=== PATIENT | male | born 1945 | race Hispanic/Latino ===

== ENCOUNTER → 2017-12-03 | Outpatient (CLI) | payer OTHER, MEDICARE ==
[~2017-12-03] MED LIST: DEXA4TAB PO; DILT120T15 PO; LISI40TA4 PO; METO-391 PO; SERT50TA12 PO; SIMV40TA5 PO; TEST75GE TD; WARF2.5T47 PO
== END | disposition home or self-care (01) ==
LOC: RAH 15:18
PROVIDERS: ATTEND Internal Medicine
DX: I10 Essential (primary) hypertension (principal); I70.0 Atherosclerosis of aorta
CPT/HCPCS: 71046

== ENCOUNTER 2018-07-07 13:36 | Emergency (ER) | payer MEDICARE ==
[2018-07-07] MEDS ORDERED: PROMETHAZINE HCL 25 MG/ML 1ML AMPULE IM ONE (16:09)
[2018-07-07 16:36] LABS: RAPID GROUP A STREP NEGATIVE (NEGATIVE)
== END 2018-07-07 17:25 | disposition home or self-care (01) ==
LOC: EDH 13:36
DX: J02.8 Acute pharyngitis due to other specified organisms (principal); B97.89 Other viral agents as the cause of diseases classified elsewhere; R06.6 Hiccough; E78.5 Hyperlipidemia, unspecified; I10 Essential (primary) hypertension
CPT/HCPCS: 87804 ×2; 87880; 96372; 99284; J2550

== ENCOUNTER 2018-07-14 07:20 | Emergency (ER) | payer OTHER, MEDICARE | END 2018-07-14 10:47 | disposition home or self-care (01) | LOC: EDH 07:20 | DX: R06.6 Hiccough (principal); Z98.890 Other specified postprocedural states; Z90.49 Acquired absence of other specified parts of digestive tract ==

== ENCOUNTER → 2018-09-22 | Outpatient (CLI) | payer OTHER, MEDICARE | END | disposition home or self-care (01) | LOC: OIH 15:06 | PROVIDERS: ATTEND Internal Medicine | DX: I10 Essential (primary) hypertension (principal); I70.0 Atherosclerosis of aorta | CPT/HCPCS: 71046 ==

== ENCOUNTER 2019-05-10 13:35 | Observation (INO) | payer OTHER, MEDICARE ==
[~2019-05-10] VITALS: Ht 167.6 cm; Wt 86.4 kg
[2019-05-10] MEDS ORDERED: CEFTRIAXONE SODIUM 2 GM VIAL ONE (14:03)
[2019-05-10] MEDS ORDERED: SODIUM CHLORIDE 0.9% 1000ML 3,000 ML IV ONE (14:04)
[2019-05-10 14:10] LABS: BASOPHILS % (AUTO) 0.2 % (0.0-5.0); HEMATOCRIT 42.6 % (42-54); LYMPHOCYTES % (AUTO) 11.5 % (21.0-51.0); MEAN CORPUSCULAR HEMOGLOBIN 28.4 pg (27.0-33.0); MEAN CORPUSCULAR HGB CONC 33.5 g/dL (32.0-36.0); MEAN CORPUSCULAR VOLUME 84.7 fL (79-99); MONOCYTES % (AUTO) 5.4 % (3.0-13.0); NEUTROPHILS % (AUTO) 82.9 % (40.0-77.0); PLATELET COUNT (AUTO) 168 K/uL (130-400); RED BLOOD CELL COUNT(AUTO) 5.03 MIL/uL (4.50-6.20); RED CELL DISTRIBUTION WIDTH 16.2 % (11.0-15.5)
[2019-05-10 14:31] LABS: CARBON DIOXIDE 22 mmol/L (21-32); CHLORIDE 103 mmol/L (101-111); GLOMERULAR FILTR. RATE CALC 35 mL/min (>60); GLUCOSE,RANDOM 109 mg/dL (70-105); POTASSIUM 4.6 mmol/L (3.5-5.1); SODIUM SERUM 137 mmol/L (136-145); UREA NITROGEN, BLOOD 28 mg/dL (7-18)
[2019-05-10 14:34] LABS: INR 1.89 (0.85-1.15); PARTIAL THROMBOPLASTIN TIME 36.1 SEC (26.3-35.5); PROTHROMBIN TIME 19.6 SEC (9.6-11.6)
[2019-05-10 14:42] LABS: ALANINE AMINOTRANSFERASE 21 U/L (12-78); ALBUMIN 3.7 g/dL (3.5-5.0); ASPARTATE AMINOTRANSFERASE 21 U/L (10-37); BILIRUBIN,TOTAL 0.8 mg/dL (0.2-1.0); CREATINE KINASE, TOTAL 207 U/L (21-232); MYOGLOBIN 155 ng/mL (10-92); TROPONIN I < 0.04 ng/mL (0.00-0.06)
[2019-05-10 15:32] LABS: APPEARANCE,URINE Clear (CLEAR); BILIRUBIN,URINE Negative (NEGATIVE); COLOR,URINE Yellow (YELLOW); GLUCOSE, URINE (UA) Negative (NEGATIVE); KETONES,URINE Negative (NEGATIVE); LEUKOCYTE ESTERASE ,URINE Negative (NEGATIVE); NITRATE,URINE Negative (NEGATIVE); OCCULT BLOOD,URINE Negative (NEGATIVE); PH,URINE 5.5 (5.0-8.0); PROTEIN,URINE Negative (NEGATIVE)
[2019-05-10 16:06] VITALS: BP 128/60
[2019-05-10] MEDS ORDERED: DONE10TA43 PO (18:29)
[2019-05-10] MEDS ORDERED: WARF5TAB76 PO (18:29)
[2019-05-10] MEDS ORDERED: PREG100C PO (18:29)
[2019-05-10] MEDS ORDERED: TIZA4CAP8 PO (18:29)
[2019-05-10] MEDS ORDERED: HYDR-4453 PO (18:30)
[2019-05-10] MEDS: ACETAMINOPHEN 325 MG TAB PO PRN (18:44)
[2019-05-10 20:00] VITALS: BP 120/61
[2019-05-10] MEDS ORDERED: SODIUM CHLORIDE 0.9% 250 ML IV ONE (20:40)
[2019-05-10] MEDS: METOPROLOL TARTRATE 50 MG TAB PO SCH (20:43)
[2019-05-10] MEDS: SIMVASTATIN 10 MG TABLET PO SCH (20:43)
[2019-05-10] MEDS: AZITHROMYCIN 500MG+NS 250ML 250 ML IV SCH (20:43)
[2019-05-10] MEDS ORDERED: TIZANIDINE HCL 2 MG TABLET PO PRN (21:00)
[2019-05-10] MEDS: PREGABALIN 100 MG CAPSULE PO SCH (21:10)
[2019-05-10] MEDS: IPRATROPIUM/ALBUTEROL SULFATE 3 ML SOLUTION IH SCH (21:10)
[2019-05-11] VITALS (7 sets, daily range): BP systolic 95–135; BP diastolic 48–64
[2019-05-11] MEDS: IPRATROPIUM/ALBUTEROL SULFATE 3 ML SOLUTION IH SCH ×5 (00:52→21:57)
[2019-05-11 05:49] LABS: HEMATOCRIT 39.2 % (42-54); MEAN CORPUSCULAR HEMOGLOBIN 29.4 pg (27.0-33.0); MEAN CORPUSCULAR HGB CONC 33.8 g/dL (32.0-36.0); MEAN CORPUSCULAR VOLUME 86.9 fL (79-99); PLATELET COUNT (AUTO) 126 K/uL (130-400); RED BLOOD CELL COUNT(AUTO) 4.51 MIL/uL (4.50-6.20); RED CELL DISTRIBUTION WIDTH 16.2 % (11.0-15.5); WHITE BLOOD COUNT (AUTO) 10.6 K/uL (4.8-10.8)
[2019-05-11 06:12] LABS: ALBUMIN 2.9 g/dL (3.5-5.0); BILIRUBIN,TOTAL 0.7 mg/dL (0.2-1.0); CREATININE 1.3 mg/dL (0.5-1.5); POTASSIUM 4.7 mmol/L (3.5-5.1); TOTAL PROTEIN, SERUM 6.3 g/dL (6.0-8.3)
[2019-05-11] MEDS: PREGABALIN 100 MG CAPSULE PO SCH ×2 (10:32→20:56)
[2019-05-11] MEDS: DONEPEZIL HCL 5 MG TAB PO SCH (10:32)
[2019-05-11] MEDS: DILTIAZEM HCL 120 MG CAP.SR.24H PO SCH (10:32)
[2019-05-11] MEDS: LISINOPRIL 40 MG TABLET PO SCH (10:33)
[2019-05-11] MEDS: CEFTRIAXONE SODIUM 1 GM IVP SCH (10:35)
[2019-05-11] MEDS: METOPROLOL TARTRATE 50 MG TAB PO SCH ×2 (10:37→20:57)
[2019-05-11] MEDS: WARFARIN SODIUM 2.5 MG TAB PO SCH (10:37)
[2019-05-11] MEDS: ENOXAPARIN SODIUM 40 MG/0.4 ML SYRINGE SQ SCH (10:38)
--- NOTE | 2019-05-11 13:11 | NUR ---
DCP CM met with pt discussed dc plans. Pt is independent prior to admission, lives at home with spouse. Denies any equipments/services. Pt feels safe to go back home, spouse able to assist with transportation and needs. DC plan to home once stable. CM to cont to follow up. Addendum: 05/11/19 at 1313 by LORI STEVENS LVN CM Amended: Links added.
[2019-05-11] MEDS ORDERED: WARFARIN SODIUM 5 MG TAB PO SCH (17:00)
[2019-05-11] MEDS: AZITHROMYCIN 500MG+NS 250ML 250 ML IV SCH (18:39)
[2019-05-11] MEDS: ACETAMINOPHEN 325 MG TAB PO PRN (20:56)
[2019-05-11] MEDS: SIMVASTATIN 10 MG TABLET PO SCH (20:57)
[2019-05-12] MEDS: IPRATROPIUM/ALBUTEROL SULFATE 3 ML SOLUTION IH SCH ×4 (01:29→14:05)
[2019-05-12 04:00] VITALS: BP 144/70
[2019-05-12 04:52] LABS: HEMATOCRIT 39.6 % (42-54); MEAN CORPUSCULAR HGB CONC 33.6 g/dL (32.0-36.0); MEAN CORPUSCULAR VOLUME 86.4 fL (79-99); PLATELET COUNT (AUTO) 153 K/uL (130-400); RED BLOOD CELL COUNT(AUTO) 4.58 MIL/uL (4.50-6.20); RED CELL DISTRIBUTION WIDTH 16.3 % (11.0-15.5); WHITE BLOOD COUNT (AUTO) 6.8 K/uL (4.8-10.8)
[2019-05-12 04:57] LABS: CREATININE 1.3 mg/dL (0.5-1.5); POTASSIUM 4.2 mmol/L (3.5-5.1)
[2019-05-12 08:00] VITALS: BP 150/75
[2019-05-12] MEDS: ENOXAPARIN SODIUM 40 MG/0.4 ML SYRINGE SQ SCH (09:00)
[2019-05-12] MEDS: DONEPEZIL HCL 5 MG TAB PO SCH (10:57)
[2019-05-12] MEDS: DILTIAZEM HCL 120 MG CAP.SR.24H PO SCH (10:57)
[2019-05-12] MEDS: PREGABALIN 100 MG CAPSULE PO SCH (10:58)
[2019-05-12] MEDS: LISINOPRIL 40 MG TABLET PO SCH (10:58)
[2019-05-12] MEDS: CEFTRIAXONE SODIUM 1 GM IVP SCH (10:59)
[2019-05-12] MEDS: WARFARIN SODIUM 2.5 MG TAB PO SCH (10:59)
[2019-05-12] MEDS: METOPROLOL TARTRATE 50 MG TAB PO SCH (10:59)
[2019-05-12 11:00] VITALS: BP 152/61
--- NOTE | 2019-05-12 12:45 | NUR ---
discharge instructions given and explained utilizing teach back method. instructed to follow up with Dr. villa for INR lab work. pt verbalized understanding.
--- NOTE | 2019-05-12 14:05 | NUR ---
Diet Education RD provided Vitamin K Foods and Warfarin Food and Drug Interaction, Diet education. Pt verbalized previously familiar with dietary and medication recommendations. TAE reviewed reference materials and handouts with Pt. Handouts and materials provided in [place]. Pt verbalized understanding. TAE encouraged Pt to notify as questions or concerns arise. Addendum: 05/12/19 at [address] RD Amended: Links added.
[2019-05-13] MEDS ORDERED: WARFARIN SODIUM 5 MG TAB PO SCH (17:00)
== END 2019-05-12 14:30 | disposition home or self-care (01) ==
LOC: EDH 13:35 → EDHIP 15:13 → 3AH 15:52
PROVIDERS: ADMIT Internal Medicine; ATTEND Internal Medicine
DX: J18.9 Pneumonia, unspecified organism (principal); I25.10 Atherosclerotic heart disease of native coronary artery without angina pectoris; I48.91 Unspecified atrial fibrillation; J40 Bronchitis, not specified as acute or chronic; M19.90 Unspecified osteoarthritis, unspecified site; I10 Essential (primary) hypertension; E78.5 Hyperlipidemia, unspecified; G89.29 Other chronic pain; M54.5 Low back pain; Z79.899 Other long term (current) drug therapy
CPT/HCPCS: 36415 ×3; 70450; 71045; 80048; 80053 ×2; 81003; 82550; 83605; 83874; 84484; 85025; 85027 ×2; 85610; 85730; 87040 ×2; 87088; 87804 ×2; 93005; 94640 ×11; 94664; 96365; 96366; 96372; 96375; 96376; 99284; G0378 ×47; J0456 ×2; J0696 ×3; J1650; J7030 ×2

== ENCOUNTER → 2019-09-14 | Outpatient (CLI) | payer OTHER, MEDICARE ==
[~2019-09-14] MED LIST changes: -DEXA4TAB PO; +DONE10TA43 PO; +HYDR-4453 PO; +PREG100C PO; -SERT50TA12 PO; +SIMV-46 PO; -SIMV40TA5 PO; -TEST75GE TD; +TIZA4CAP8 PO; +WARF5TAB76 PO
== END | disposition home or self-care (01) ==
LOC: OIH 13:50
PROVIDERS: ATTEND Internal Medicine
DX: I10 Essential (primary) hypertension (principal)
CPT/HCPCS: 71046

== ENCOUNTER → 2019-11-16 | Outpatient (CLI) | payer OTHER, MEDICARE | END | disposition home or self-care (01) | LOC: OIH 14:50 | PROVIDERS: ATTEND Internal Medicine | DX: M41.85 Other forms of scoliosis, thoracolumbar region (principal) | CPT/HCPCS: 72082 ==

== ENCOUNTER 2019-11-26 15:59 | Emergency (ER) | payer OTHER, MEDICARE ==
[2019-11-26 17:14] LABS: BASOPHILS % (AUTO) 0.8 % (0.0-5.0); EOSINOPHILS % (AUTO) 2.7 % (0.0-8.0); HEMATOCRIT 39.2 % (42-54); LYMPHOCYTES % (AUTO) 34.8 % (21.0-51.0); MEAN CORPUSCULAR HEMOGLOBIN 29.9 pg (27.0-33.0); MEAN CORPUSCULAR HGB CONC 34.7 g/dL (32.0-36.0); MEAN CORPUSCULAR VOLUME 86.2 fL (79-99); MONOCYTES % (AUTO) 10.4 % (3.0-13.0); NEUTROPHILS % (AUTO) 51.1 % (40.0-77.0); PLATELET COUNT (AUTO) 193 K/uL (130-400); RED BLOOD CELL COUNT(AUTO) 4.55 MIL/uL (4.50-6.20); RED CELL DISTRIBUTION WIDTH 13.9 % (11.0-15.5); WHITE BLOOD COUNT (AUTO) 6.2 K/uL (4.8-10.8)
[2019-11-26 17:29] LABS: CREATININE 1.3 mg/dL (0.5-1.5)
[2019-11-26 17:34] LABS: ALBUMIN 3.6 g/dL (3.5-5.0); BILIRUBIN,TOTAL 0.3 mg/dL (0.2-1.0); INR 1.54 (0.85-1.15); PARTIAL THROMBOPLASTIN TIME 33.1 SEC (26.3-35.5); PROTHROMBIN TIME 16.4 SEC (9.6-11.6); TOTAL PROTEIN, SERUM 7.2 g/dL (6.0-8.3)
[2019-11-26 18:08] LABS: B-TYPE NATRIURETIC PEPTIDE 36 pg/mL (0-100)
== END 2019-11-26 20:54 | disposition home or self-care (01) ==
LOC: EDH 15:59
DX: R06.00 Dyspnea, unspecified (principal); I25.10 Atherosclerotic heart disease of native coronary artery without angina pectoris; E78.5 Hyperlipidemia, unspecified; I10 Essential (primary) hypertension; Z90.49 Acquired absence of other specified parts of digestive tract
CPT/HCPCS: 36415; 71045; 80053; 82550; 83880; 84484; 85025; 85610; 85730; 87804; 93005

== ENCOUNTER → 2020-09-12 | Outpatient (CLI) | payer OTHER, MEDICARE ==
[~2020-09-12] MED LIST changes: +WARF2.5T PO; -WARF2.5T47 PO; +WARF5TAB PO; -WARF5TAB76 PO
== END | disposition home or self-care (01) ==
LOC: OIH 13:41
PROVIDERS: ATTEND Internal Medicine
DX: I10 Essential (primary) hypertension (principal)
CPT/HCPCS: 71046

== ENCOUNTER 2020-09-22 04:10 | Inpatient (IN) | payer OTHER, MEDICARE ==
[~2020-09-22] VITALS: Ht 175.3 cm; Wt 81.6 kg
[~2020-09-22 04:10] MED LIST changes: -LISI40TA4 PO; +LISI40TA9 PO
[2020-09-22 04:59] LABS: BASOPHILS % (AUTO) 0.2 % (0.0-5.0); EOSINOPHILS % (AUTO) 1.6 % (0.0-8.0); HEMATOCRIT 35.7 % (42-54); LYMPHOCYTES % (AUTO) 7.3 % (21.0-51.0); MEAN CORPUSCULAR HEMOGLOBIN 29.1 pg (27.0-33.0); MEAN CORPUSCULAR HGB CONC 34.5 g/dL (32.0-36.0); MEAN CORPUSCULAR VOLUME 84.4 fL (79-99); MONOCYTES % (AUTO) 1.4 % (3.0-13.0); NEUTROPHILS % (AUTO) 88.8 % (40.0-77.0); PLATELET COUNT (AUTO) 300 K/uL (130-400); RED BLOOD CELL COUNT(AUTO) 4.23 MIL/uL (4.50-6.20); RED CELL DISTRIBUTION WIDTH 14.6 % (11.0-15.5); WHITE BLOOD COUNT (AUTO) 12.3 K/uL (4.8-10.8)
[2020-09-22 05:11] LABS: CREATININE 2.9 mg/dL (0.5-1.5); POTASSIUM 4.1 mmol/L (3.5-5.1)
[2020-09-22 05:12] LABS: PARTIAL THROMBOPLASTIN TIME 62.8 SEC (26.3-35.5)
[2020-09-22 05:18] LABS: APPEARANCE,URINE Clear (CLEAR); BILIRUBIN,URINE Negative (NEGATIVE); COLOR,URINE Yellow (YELLOW); GLUCOSE, URINE (UA) TRACE mg/dL (NEGATIVE); KETONES,URINE Negative (NEGATIVE); LEUKOCYTE ESTERASE ,URINE Negative (NEGATIVE); NITRATE,URINE Negative (NEGATIVE); OCCULT BLOOD,URINE Negative (NEGATIVE); PH,URINE 5.5 (5.0-8.0); PROTEIN,URINE Trace mg/dL (NEGATIVE)
[2020-09-22 05:18] LABS: ALBUMIN 2.4 g/dL (3.5-5.0); BILIRUBIN,TOTAL 0.5 mg/dL (0.2-1.0); TOTAL PROTEIN, SERUM 6.7 g/dL (6.0-8.3)
[2020-09-22] MEDS ORDERED: ONDANSETRON 4MG INJ ONE (05:19)
[2020-09-22] MEDS ORDERED: MORPHINE 2 MG SYG ONE ×3 (05:20→14:10)
[2020-09-22 05:31] LABS: BACTERIA,URINE Few /HPF (None Seen); RBC,URINE 0-1 /HPF (0-1); SQUAMOUS EPITHELIAL CELL,UR 0-2 /HPF (0-2); WBC,URINE 0-1 /HPF (0-1)
[2020-09-22 06:14] LABS: INR > 7.00 (0.85-1.15); PROTHROMBIN TIME > 63.0 SEC (9.6-11.6)
[2020-09-22] MEDS ORDERED: ZOSYN 3.375GM+NS 50ML 50 ML IV ONE ×3 (06:30→22:56)
[2020-09-22 07:05] LABS: PARTIAL THROMBOPLASTIN TIME 68.6 SEC (26.3-35.5)
[2020-09-22 07:49] LABS: INR > 7.00 (0.85-1.15)
[2020-09-22 07:51] LABS: PROTHROMBIN TIME > 63.0 SEC (9.6-11.6)
[2020-09-22] MEDS ORDERED: PHYTONADIONE 10 MG/1 ML AMP ONE (08:14)
[2020-09-22] MEDS ORDERED: METRONIDAZOLE 500MG/100ML BAG 100 ML ONE ×2 (08:23→18:32)
[2020-09-22] MEDS ORDERED: 1/2 NS 1000ML 1,000 ML IV ONE (22:48)
[2020-09-23] VITALS (10 sets, daily range): BP systolic 136–187; BP diastolic 76–104
[2020-09-23] MEDS ORDERED: MORPHINE 2 MG SYG ONE (03:41)
[2020-09-23] MEDS ORDERED: METRONIDAZOLE 500MG/100ML BAG 100 ML ONE (03:47)
[2020-09-23] MEDS ORDERED: METOPROLOL TARTRATE 1 MG/ML 5ML VIAL IV SCH (07:15)
[2020-09-23] MEDS: 1/2 NS 1000ML 1,000 ML IV SCH ×3 (07:15→20:46)
[2020-09-23] MEDS ORDERED: HYDROMORPHONE 0.5 MG SYG (0.5MG/0.5ML) ONE (11:01)
[2020-09-23] MEDS ORDERED: ONDANSETRON 4MG INJ ONE (11:01)
[2020-09-23] MEDS ORDERED: METOPROLOL TARTRATE 1 MG/ML 5ML VIAL IV ONE (11:53)
[2020-09-23 12:00] LABS: INR 1.51 (0.85-1.15); PROTHROMBIN TIME 15.6 SEC (9.6-11.6)
[2020-09-23 12:01] LABS: PARTIAL THROMBOPLASTIN TIME 36.9 SEC (26.3-35.5)
[2020-09-23 14:05] LABS: BASOPHILS % (AUTO) 0.4 % (0.0-5.0); EOSINOPHILS % (AUTO) 0.2 % (0.0-8.0); HEMATOCRIT 35.4 % (42-54); MEAN CORPUSCULAR HEMOGLOBIN 29.2 pg (27.0-33.0); MEAN CORPUSCULAR VOLUME 83.3 fL (79-99); MONOCYTES % (AUTO) 2.1 % (3.0-13.0); NEUTROPHILS % (AUTO) 90.9 % (40.0-77.0); PLATELET COUNT (AUTO) 295 K/uL (130-400); RED BLOOD CELL COUNT(AUTO) 4.25 MIL/uL (4.50-6.20); RED CELL DISTRIBUTION WIDTH 14.9 % (11.0-15.5); WHITE BLOOD COUNT (AUTO) 19.8 K/uL (4.8-10.8)
[2020-09-23] MEDS: HYDROMORPHONE 0.5 MG SYG (0.5MG/0.5ML) IVP PRN ×3 (14:18→22:11)
[2020-09-23] MEDS ORDERED: NICARDIPINE 25MG INJ 50 MG in 0.9% NACL 250ML 230 ML IV SCH (15:45)
[2020-09-23 16:36] LABS: ALBUMIN 1.8 g/dL (3.5-5.0); BILIRUBIN,TOTAL 0.8 mg/dL (0.2-1.0); CREATININE 1.9 mg/dL (0.5-1.5); POTASSIUM 4.1 mmol/L (3.5-5.1); TOTAL PROTEIN, SERUM 5.9 g/dL (6.0-8.3)
[2020-09-23] MEDS ORDERED: LOSA100T58 PO (16:43)
[2020-09-23] MEDS ORDERED: TEST200V21 IM (16:43)
[2020-09-23] MEDS ORDERED: ALLO100T PO (16:43)
[2020-09-23] MEDS ORDERED: PRED20TA3 PO (16:43)
[2020-09-23] MEDS ORDERED: TAMS-1 PO (16:43)
[2020-09-23] MEDS: METRONIDAZOLE 500MG/100ML BAG 100 ML IVPB SCH (16:49)
[2020-09-23] MEDS ORDERED: ONDANSETRON 4MG INJ IVP PRN (19:30)
[2020-09-23] MEDS ORDERED: ACETAMINOPHEN 650 MG SUPPOSITORY RC PRN (19:30)
[2020-09-23] MEDS: FAMOTIDINE 20MG VIAL IV SCH (20:44)
[2020-09-24] VITALS (23 sets, daily range): BP systolic 141–189; BP diastolic 75–113
[2020-09-24] MEDS: METRONIDAZOLE 500MG/100ML BAG 100 ML IVPB SCH ×3 (00:01→15:38)
[2020-09-24] MEDS: ZOSYN 3.375GM+NS 50ML 50 ML IV SCH ×2 (01:05→12:38)
[2020-09-24] MEDS: HYDROMORPHONE 0.5 MG SYG (0.5MG/0.5ML) IVP PRN ×7 (01:12→20:49)
[2020-09-24 03:55] LABS: BASOPHILS % (AUTO) 0.2 % (0.0-5.0); EOSINOPHILS % (AUTO) 0.3 % (0.0-8.0); HEMATOCRIT 33.6 % (42-54); LYMPHOCYTES % (AUTO) 3.8 % (21.0-51.0); MEAN CORPUSCULAR HEMOGLOBIN 28.6 pg (27.0-33.0); MEAN CORPUSCULAR HGB CONC 34.8 g/dL (32.0-36.0); MEAN CORPUSCULAR VOLUME 82.2 fL (79-99); MONOCYTES % (AUTO) 2.7 % (3.0-13.0); PLATELET COUNT (AUTO) 303 K/uL (130-400); RED BLOOD CELL COUNT(AUTO) 4.09 MIL/uL (4.50-6.20); RED CELL DISTRIBUTION WIDTH 14.8 % (11.0-15.5); WHITE BLOOD COUNT (AUTO) 20.7 K/uL (4.8-10.8)
[2020-09-24 04:04] LABS: CREATININE 1.8 mg/dL (0.5-1.5)
[2020-09-24 04:20] LABS: INR 1.63 (0.85-1.15); PROTHROMBIN TIME 16.7 SEC (9.6-11.6)
[2020-09-24] MEDS: 1/2 NS 1000ML 1,000 ML IV SCH (06:11)
[2020-09-24] MEDS: FLUCONAZOLE 400 MG/NS 200 ML 200 ML IV SCH (08:33)
[2020-09-24] MEDS: METOCLOPRAMIDE 10 MG/2 ML VIAL IVP SCH ×2 (12:38→17:28)
[2020-09-24] MEDS ORDERED: GLUCAGON 1MG KIT 1 MG ML IM PRN (18:45)
[2020-09-24] MEDS ORDERED: DEXTROSE 50%-WATER 50 ML DISP.SYRIN IV PRN (18:45)
[2020-09-24] MEDS: 0.9% NACL 500ML IV.SOLN 500 ML IV SCH ×4 (18:45→20:18)
[2020-09-24] MEDS: DEXTROSE 5%-LACTATED RINGERS 1,000 ML IV SCH (20:28)
[2020-09-24] MEDS: FAT EMULSIONS 20% 250ML 250 ML IV SCH (20:29)
[2020-09-24] MEDS: FAMOTIDINE 20MG VIAL IV SCH (20:29)
[2020-09-24] MEDS: METOPROLOL TARTRATE 1 MG/ML 5ML VIAL IV SCH (20:33)
[2020-09-24] MEDS: INSULIN HUMULIN R 100 UNIT/ML 3ML SQ SCH (21:00)
[2020-09-25] VITALS (14 sets, daily range): BP systolic 100–191; BP diastolic 60–106
[2020-09-25] MEDS: HYDROMORPHONE 0.5 MG SYG (0.5MG/0.5ML) IVP PRN (00:33)
[2020-09-25] MEDS: METOPROLOL TARTRATE 1 MG/ML 5ML VIAL IV SCH ×5 (00:45→23:47)
[2020-09-25] MEDS: METRONIDAZOLE 500MG/100ML BAG 100 ML IVPB SCH ×4 (00:48→23:32)
[2020-09-25] MEDS: ZOSYN 3.375GM+NS 50ML 50 ML IV SCH ×2 (00:49→12:30)
[2020-09-25] MEDS: METOCLOPRAMIDE 10 MG/2 ML VIAL IVP SCH ×3 (00:49→12:31)
[2020-09-25] MEDS: HYDROMORPHONE 2 MG VIAL (2MG/ML) IVP PRN ×4 (03:30→14:59)
[2020-09-25] MEDS: INSULIN HUMULIN R 100 UNIT/ML 3ML SQ SCH ×4 (03:43→23:46)
[2020-09-25 03:46] LABS: HEMATOCRIT 31.1 % (42-54); MEAN CORPUSCULAR HEMOGLOBIN 29.1 pg (27.0-33.0); MEAN CORPUSCULAR HGB CONC 35.7 g/dL (32.0-36.0); MEAN CORPUSCULAR VOLUME 81.6 fL (79-99); RED BLOOD CELL COUNT(AUTO) 3.81 MIL/uL (4.50-6.20); RED CELL DISTRIBUTION WIDTH 14.7 % (11.0-15.5); WHITE BLOOD COUNT (AUTO) 24.9 K/uL (4.8-10.8)
[2020-09-25 03:58] LABS: CREATININE 1.5 mg/dL (0.5-1.5); MAGNESIUM 1.6 mg/dL (1.80-2.40); PHOSPHORUS 2.7 mg/dL (2.5-4.9); POTASSIUM 3.6 mmol/L (3.5-5.1)
[2020-09-25] MEDS ORDERED: LIDOCAINE HCL-MPF 1% 2ML VIAL IV PRN (07:45)
[2020-09-25] MEDS ORDERED: MAGNESIUM 2GM PREMIX 50ML 50 ML IV SCH (07:45)
[2020-09-25] MEDS: FLUCONAZOLE 400 MG/NS 200 ML 200 ML IV SCH (08:34)
[2020-09-25] MEDS ORDERED: M.V.I. IV [ADULT] 10 ML in CLINIMIX-E4.25%AA/D5+LYT2000ML 2,000 ML IV SCH (09:00)
[2020-09-25] MEDS: FAT EMULSIONS 20% 250ML 250 ML IV SCH (12:28)
[2020-09-25] MEDS: DEXTROSE 5%-LACTATED RINGERS 1,000 ML IV SCH (14:41)
[2020-09-25] MEDS: POTASSIUM CHLORIDE 20MEQ/100ML 100 ML IV PRN (14:43)
[2020-09-25] MEDS ORDERED: 0.9%NACL 1000ML 1,000 ML IV ONE (19:06)
[2020-09-25] MEDS ORDERED: LIDOCAINE PF 100MG/5ML (2%) SYRINGE 5ML ONE (19:23)
[2020-09-25] MEDS ORDERED: DEXAMETHASONE SOD PHOSPHATE 10MG/ML 1ML VIAL ONE (19:23)
[2020-09-25] MEDS ORDERED: ROCURONIUM 10MG/1ML SYR 10 MG/ML ML ONE ×2 (19:24→21:02)
[2020-09-25] MEDS ORDERED: MIDAZOLAM HCL 1 MG/ML 2ML VIAL ONE (19:24)
[2020-09-25] MEDS ORDERED: ONDANSETRON 4MG INJ ONE (19:24)
[2020-09-25] MEDS ORDERED: PROPOFOL 10 MG/ML 20ML VIAL IV ONE (19:24)
[2020-09-25] MEDS ORDERED: FENTANYL CITRATE PF 50 MCG/1 ML 2ML VIAL ONE (19:24)
[2020-09-25] MEDS ORDERED: M.V.I. IV [ADULT] 10 ML in CLINIMIX-E4.25%AA/D5+LYT2000ML 2,000 ML IV ONE (21:00)
[2020-09-25] MEDS ORDERED: PROPOFOL 1000 MG/100 ML 100 ML IV ONE (21:27)
[2020-09-25] MEDS: FAMOTIDINE 20MG VIAL IV SCH (21:47)
[2020-09-25 21:55] LABS: HEMATOCRIT 35.2 % (42-54); MEAN CORPUSCULAR HEMOGLOBIN 29.3 pg (27.0-33.0); MEAN CORPUSCULAR HGB CONC 34.7 g/dL (32.0-36.0); MEAN CORPUSCULAR VOLUME 84.4 fL (79-99); NUCLEATED RED BLOOD CELLS 0.1 % (0.0-0.19); RED BLOOD CELL COUNT(AUTO) 4.17 MIL/uL (4.50-6.20); RED CELL DISTRIBUTION WIDTH 15.3 % (11.0-15.5); WHITE BLOOD COUNT (AUTO) 26.8 K/uL (4.8-10.8)
[2020-09-25 22:09] LABS: CREATININE 1.4 mg/dL (0.5-1.5); POTASSIUM 4.3 mmol/L (3.5-5.1)
[2020-09-25] MEDS ORDERED: MIDAZOLAM 100MG-0.9% NS 100ML 100ML BAG IV ONE (22:15)
[2020-09-25] MEDS ORDERED: PROPOFOL 1000 MG/100 ML IV PRN (22:15)
[2020-09-25] MEDS ORDERED: FENTANYL CITRATE PF 0.05 MG/ML 1,000 MCG in 0.9%NACL 100ML 100 ML IVPB SCH (22:15)
[2020-09-25] MEDS ORDERED: MIDAZOLAM 100MG-0.9% NS 100ML 100 ML IV SCH (23:30)
[2020-09-26] VITALS (42 sets, daily range): BP systolic 86–171; BP diastolic 50–96
[2020-09-26] MEDS: ZOSYN 3.375GM+NS 50ML 50 ML IV SCH ×2 (00:23→14:22)
[2020-09-26] MEDS: PROPOFOL 1000 MG/100 ML 100 ML IV SCH ×3 (02:38→13:26)
[2020-09-26 03:50] LABS: BASOPHILS % (AUTO) 0.2 % (0.0-5.0); EOSINOPHILS % (AUTO) 0.1 % (0.0-8.0); HEMATOCRIT 31.1 % (42-54); LYMPHOCYTES % (AUTO) 2.5 % (21.0-51.0); MEAN CORPUSCULAR HEMOGLOBIN 28.5 pg (27.0-33.0); MEAN CORPUSCULAR HGB CONC 34.4 g/dL (32.0-36.0); MEAN CORPUSCULAR VOLUME 82.9 fL (79-99); MONOCYTES % (AUTO) 3.3 % (3.0-13.0); NEUTROPHILS % (AUTO) 92.9 % (40.0-77.0); PLATELET COUNT (AUTO) 233 K/uL (130-400); RED BLOOD CELL COUNT(AUTO) 3.75 MIL/uL (4.50-6.20); RED CELL DISTRIBUTION WIDTH 14.9 % (11.0-15.5); WHITE BLOOD COUNT (AUTO) 25.7 K/uL (4.8-10.8)
[2020-09-26 04:04] LABS: INR 1.94 (0.85-1.15); PROTHROMBIN TIME 19.5 SEC (9.6-11.6)
[2020-09-26 04:06] LABS: PARTIAL THROMBOPLASTIN TIME 35.4 SEC (26.3-35.5)
[2020-09-26 04:08] LABS: ALBUMIN 1.4 g/dL (3.5-5.0); BILIRUBIN,TOTAL 1.1 mg/dL (0.2-1.0); CREATININE 1.3 mg/dL (0.5-1.5); MAGNESIUM 1.7 mg/dL (1.80-2.40); PHOSPHORUS 2.8 mg/dL (2.5-4.9); POTASSIUM 4.3 mmol/L (3.5-5.1); TOTAL PROTEIN, SERUM 4.9 g/dL (6.0-8.3)
[2020-09-26 04:30] LABS: ABG BASE EXCESS 1.3 mmol/L (-2.0-3.0); ABG HCO3 23.4 mmol/L (21.0-28.0); ABG OXYGEN SATURATION 98.6 % (95.0-99.0); ABG PCO2 30 mmHg (35-48)
[2020-09-26] MEDS: DEXTROSE 5%-LACTATED RINGERS 1,000 ML IV SCH ×2 (05:23→05:24)
[2020-09-26] MEDS: METOPROLOL TARTRATE 1 MG/ML 5ML VIAL IV SCH ×3 (06:24→17:27)
[2020-09-26] MEDS: INSULIN HUMULIN R 100 UNIT/ML 3ML SQ SCH ×4 (06:26→21:00)
[2020-09-26] MEDS: METRONIDAZOLE 500MG/100ML BAG 100 ML IVPB SCH ×2 (07:48→16:20)
[2020-09-26] MEDS: PANTOPRAZOLE 40 MG/VIAL IVP SCH (08:45)
[2020-09-26] MEDS: FLUCONAZOLE 400 MG/NS 200 ML 200 ML IV SCH (08:45)
[2020-09-26] MEDS: HYDROMORPHONE 0.5 MG SYG (0.5MG/0.5ML) IVP PRN ×2 (13:44→16:20)
[2020-09-26] MEDS ORDERED: CLINIMIX-E4.25%AA/D5+LYT2000ML 2,000 ML IV ONE (14:00)
[2020-09-26] MEDS: FAT EMULSIONS 20% 250ML 250 ML IV SCH (14:22)
[2020-09-26 15:11] LABS: INR 2.33 (0.85-1.15); PROTHROMBIN TIME 23.1 SEC (9.6-11.6)
[2020-09-26 16:15] LABS: ABG BASE EXCESS -1.7 mmol/L (-2.0-3.0); ABG HCO3 20.4 mmol/L (21.0-28.0); ABG OXYGEN SATURATION 97.7 % (95.0-99.0); ABG PCO2 28 mmHg (35-48)
[2020-09-26] MEDS: HYDROMORPHONE 2 MG VIAL (2MG/ML) IVP PRN ×2 (17:53→22:08)
[2020-09-27] VITALS (29 sets, daily range): BP systolic 141–176; BP diastolic 72–97
[2020-09-27] MEDS: HYDROMORPHONE 2 MG VIAL (2MG/ML) IVP PRN ×5 (01:55→20:45)
[2020-09-27] MEDS: METRONIDAZOLE 500MG/100ML BAG 100 ML IVPB SCH ×3 (02:00→15:51)
[2020-09-27] MEDS: ZOSYN 3.375GM+NS 50ML 50 ML IV SCH ×2 (02:00→12:24)
[2020-09-27] MEDS: METOPROLOL TARTRATE 1 MG/ML 5ML VIAL IV SCH ×4 (02:01→17:58)
[2020-09-27 04:21] LABS: BASOPHILS % (AUTO) 0.2 % (0.0-5.0); EOSINOPHILS % (AUTO) 0.4 % (0.0-8.0); HEMATOCRIT 28.4 % (42-54); LYMPHOCYTES % (AUTO) 4.3 % (21.0-51.0); MEAN CORPUSCULAR HEMOGLOBIN 28.8 pg (27.0-33.0); MEAN CORPUSCULAR HGB CONC 33.5 g/dL (32.0-36.0); MEAN CORPUSCULAR VOLUME 86.1 fL (79-99); MONOCYTES % (AUTO) 5.2 % (3.0-13.0); NEUTROPHILS % (AUTO) 87.5 % (40.0-77.0); PLATELET COUNT (AUTO) 251 K/uL (130-400); RED CELL DISTRIBUTION WIDTH 15.6 % (11.0-15.5); WHITE BLOOD COUNT (AUTO) 23.1 K/uL (4.8-10.8)
[2020-09-27 04:30] LABS: CREATININE 1.3 mg/dL (0.5-1.5); POTASSIUM 5.9 mmol/L (3.5-5.1)
[2020-09-27] MEDS: DEXTROSE 5%-LACTATED RINGERS 1,000 ML IV SCH (06:45)
[2020-09-27] MEDS: INSULIN HUMULIN R 100 UNIT/ML 3ML SQ SCH ×3 (07:30→17:59)
[2020-09-27] MEDS: PANTOPRAZOLE 40 MG/VIAL IVP SCH (08:02)
[2020-09-27] MEDS: FLUCONAZOLE 400 MG/NS 200 ML 200 ML IV SCH (08:02)
[2020-09-27] MEDS: FAT EMULSIONS 20% 250ML 250 ML IV SCH (10:00)
[2020-09-27] MEDS ORDERED: HYDROMORPHONE 0.5 MG SYG (0.5MG/0.5ML) IVP PRN (13:00)
[2020-09-27] MEDS ORDERED: FENTANYL 2500MCG+NS 250ML 250 ML IV SCH (13:00)
[2020-09-27] MEDS ORDERED: DEXTROSE 10%-WATER 1,000 ML IV ONE (14:45)
[2020-09-27] MEDS: PROCALAMINE IV SOLUTION 1,000 ML IV SCH (17:17)
[2020-09-27] MEDS ORDERED: HYDROMORPHONE 1 MG INJ ONE (18:30)
[2020-09-27] MEDS: M V I IV SCH ×2 (21:00→21:39)
[2020-09-27] MEDS: NACL 0.9% IV SCH ×2 (21:00→21:39)
[2020-09-28] VITALS (36 sets, daily range): BP systolic 126–185; BP diastolic 61–98
[2020-09-28] MEDS: HYDROMORPHONE 2 MG VIAL (2MG/ML) IVP PRN (00:14)
[2020-09-28] MEDS: METRONIDAZOLE 500MG/100ML BAG 100 ML IVPB SCH ×4 (00:48→23:53)
[2020-09-28] MEDS: METOPROLOL TARTRATE 1 MG/ML 5ML VIAL IV SCH ×5 (00:48→23:53)
[2020-09-28] MEDS: ZOSYN 3.375GM+NS 50ML 50 ML IV SCH ×2 (00:48→12:07)
[2020-09-28] MEDS: PROCALAMINE IV SOLUTION 1,000 ML IV SCH ×3 (03:59→23:23)
[2020-09-28] MEDS: INSULIN HUMULIN R 100 UNIT/ML 3ML SQ SCH ×4 (06:00→16:57)
[2020-09-28] MEDS ORDERED: LACTATED RINGERS 1000ML 1,000 ML IV ONE (06:00)
[2020-09-28] MEDS ORDERED: LACTATED RINGERS 1000ML 1,000 ML IV SCH (06:00)
[2020-09-28] MEDS ORDERED: PROMETHAZINE HCL 25 MG/ML 1ML AMPULE IM PRN (06:00)
[2020-09-28] MEDS: PANTOPRAZOLE 40 MG/VIAL IVP SCH (07:47)
[2020-09-28] MEDS: FLUCONAZOLE 400 MG/NS 200 ML 200 ML IV SCH (07:47)
[2020-09-28] MEDS: HYDROMORPHONE 0.5 MG SYG (0.5MG/0.5ML) IVP PRN ×4 (07:47→20:50)
[2020-09-28] MEDS: NACL 0.9% IV SCH (09:00)
[2020-09-28] MEDS: M V I IV SCH (09:00)
[2020-09-28] MEDS: FAT EMULSIONS 20% 250ML 250 ML IV SCH (09:20)
[2020-09-28] MEDS ORDERED: METOCLOPRAMIDE 10 MG/2 ML VIAL ONE (11:04)
[2020-09-28] MEDS ORDERED: LABETALOL 20MG VIAL IV ONE (14:19)
[2020-09-28] MEDS ORDERED: LABETALOL 20MG SYG IV PRN (14:30)
[2020-09-28] MEDS: METOCLOPRAMIDE 10 MG/2 ML VIAL IVP SCH (20:14)
[2020-09-29] VITALS (34 sets, daily range): BP systolic 134–188; BP diastolic 52–111
[2020-09-29] MEDS: ZOSYN 3.375GM+NS 50ML 50 ML IV SCH ×2 (01:52→12:10)
[2020-09-29] MEDS: HYDROMORPHONE 0.5 MG SYG (0.5MG/0.5ML) IVP PRN ×5 (01:52→22:55)
[2020-09-29 05:08] LABS: HEMATOCRIT 26.6 % (42-54); MEAN CORPUSCULAR HEMOGLOBIN 28.9 pg (27.0-33.0); MEAN CORPUSCULAR HGB CONC 34.6 g/dL (32.0-36.0); MEAN CORPUSCULAR VOLUME 83.6 fL (79-99); RED BLOOD CELL COUNT(AUTO) 3.18 MIL/uL (4.50-6.20); WHITE BLOOD COUNT (AUTO) 18.2 K/uL (4.8-10.8)
[2020-09-29 05:38] LABS: CREATININE 1.2 mg/dL (0.5-1.5); POTASSIUM 4.2 mmol/L (3.5-5.1)
[2020-09-29] MEDS: INSULIN HUMULIN R 100 UNIT/ML 3ML SQ SCH ×4 (06:00→15:53)
[2020-09-29] MEDS: METOPROLOL TARTRATE 1 MG/ML 5ML VIAL IV SCH ×2 (06:19→11:56)
[2020-09-29] MEDS: LACTATED RINGERS 1000ML 1,000 ML IV SCH ×2 (06:42→21:39)
[2020-09-29] MEDS: METRONIDAZOLE 500MG/100ML BAG 100 ML IVPB SCH ×3 (08:47→23:29)
[2020-09-29] MEDS: PANTOPRAZOLE 40 MG/VIAL IVP SCH (08:47)
[2020-09-29] MEDS: FLUCONAZOLE 400 MG/NS 200 ML 200 ML IV SCH (08:47)
[2020-09-29] MEDS: METOCLOPRAMIDE 10 MG/2 ML VIAL IVP SCH ×2 (08:47→20:20)
[2020-09-29] MEDS: PROCALAMINE IV SOLUTION 1,000 ML IV SCH ×2 (09:00→21:41)
[2020-09-29] MEDS: FAT EMULSIONS 20% 250ML 250 ML IV SCH (10:31)
[2020-09-29] MEDS ORDERED: METOPROLOL TARTRATE 50 MG TAB ONE (15:47)
[2020-09-29] MEDS: TAMSULOSIN HCL 0.4 MG CAP.ER.24H PO SCH (16:12)
[2020-09-29] MEDS: METOPROLOL TARTRATE 50 MG TAB PO SCH (16:13)
[2020-09-29] MEDS: ACETAMINOPHEN 325 MG TAB PO PRN (22:03)
[2020-09-30] VITALS (19 sets, daily range): BP systolic 111–179; BP diastolic 56–116
[2020-09-30] MEDS: ZOSYN 3.375GM+NS 50ML 50 ML IV SCH ×2 (00:34→13:27)
[2020-09-30] MEDS: ACETAMINOPHEN 325 MG TAB PO PRN (02:04)
[2020-09-30] MEDS: HYDROMORPHONE 0.5 MG SYG (0.5MG/0.5ML) IVP PRN ×4 (05:13→17:13)
[2020-09-30 05:18] LABS: HEMATOCRIT 26.2 % (42-54); MEAN CORPUSCULAR HEMOGLOBIN 28.1 pg (27.0-33.0); MEAN CORPUSCULAR HGB CONC 33.6 g/dL (32.0-36.0); MEAN CORPUSCULAR VOLUME 83.7 fL (79-99); RED BLOOD CELL COUNT(AUTO) 3.13 MIL/uL (4.50-6.20); RED CELL DISTRIBUTION WIDTH 14.9 % (11.0-15.5); WHITE BLOOD COUNT (AUTO) 16.4 K/uL (4.8-10.8)
[2020-09-30 05:29] LABS: CREATININE 1.2 mg/dL (0.5-1.5); POTASSIUM 3.9 mmol/L (3.5-5.1)
[2020-09-30] MEDS: INSULIN HUMULIN R 100 UNIT/ML 3ML SQ SCH ×4 (06:00→17:55)
[2020-09-30] MEDS: METRONIDAZOLE 500MG/100ML BAG 100 ML IVPB SCH ×3 (08:39→23:03)
[2020-09-30] MEDS: FLUCONAZOLE 400 MG/NS 200 ML 200 ML IV SCH (08:39)
[2020-09-30] MEDS: METOCLOPRAMIDE 10 MG/2 ML VIAL IVP SCH ×2 (08:40→21:03)
[2020-09-30] MEDS: DILTIAZEM 120MG SR CAP PO SCH (08:40)
[2020-09-30] MEDS: PANTOPRAZOLE 40 MG/VIAL IVP SCH (08:40)
[2020-09-30] MEDS: LOSARTAN 100 MG TABLET PO SCH (08:40)
[2020-09-30] MEDS: METOPROLOL TARTRATE 50 MG TAB PO SCH (08:41)
[2020-09-30] MEDS: PROCALAMINE IV SOLUTION 1,000 ML IV SCH ×2 (08:41→21:00)
[2020-09-30] MEDS: TAMSULOSIN HCL 0.4 MG CAP.ER.24H PO SCH (08:41)
[2020-09-30] MEDS: FAT EMULSIONS 20% 250ML 250 ML IV SCH (10:48)
[2020-09-30] MEDS ORDERED: CLINIMIX-E 5%AA /D15%W 2000ML 2,000 ML IV NR (12:15)
[2020-09-30] MEDS: LACTATED RINGERS 1000ML 1,000 ML IV SCH (13:24)
[2020-10-01] MEDS: ZOSYN 3.375GM+NS 50ML 50 ML IV SCH ×2 (01:11→13:36)
[2020-10-01] MEDS: HYDROMORPHONE 0.5 MG SYG (0.5MG/0.5ML) IVP PRN ×2 (02:27→09:44)
[2020-10-01 03:36] VITALS: BP 142/62
[2020-10-01] MEDS: INSULIN HUMULIN R 100 UNIT/ML 3ML SQ SCH ×4 (05:37→21:00)
[2020-10-01 06:11] LABS: BASOPHILS % (AUTO) 0.2 % (0.0-5.0); EOSINOPHILS % (AUTO) 1.2 % (0.0-8.0); HEMATOCRIT 23.8 % (42-54); LYMPHOCYTES % (AUTO) 6.8 % (21.0-51.0); MEAN CORPUSCULAR HEMOGLOBIN 28.6 pg (27.0-33.0); MEAN CORPUSCULAR HGB CONC 33.6 g/dL (32.0-36.0); MONOCYTES % (AUTO) 5.4 % (3.0-13.0); NEUTROPHILS % (AUTO) 84.8 % (40.0-77.0); PLATELET COUNT (AUTO) 352 K/uL (130-400); RED CELL DISTRIBUTION WIDTH 15.3 % (11.0-15.5); WHITE BLOOD COUNT (AUTO) 12.6 K/uL (4.8-10.8)
[2020-10-01 06:38] LABS: ALBUMIN 1.3 g/dL (3.5-5.0); CREATININE 1.2 mg/dL (0.5-1.5); POTASSIUM 3.6 mmol/L (3.5-5.1)
[2020-10-01] MEDS: POTASSIUM CHLORIDE 20MEQ/100ML 100 ML IV PRN (06:45)
[2020-10-01] MEDS: PROCALAMINE IV SOLUTION 1,000 ML IV SCH ×2 (09:00→19:48)
[2020-10-01] MEDS: METOCLOPRAMIDE 10 MG/2 ML VIAL IVP SCH ×2 (09:03→21:36)
[2020-10-01] MEDS: DILTIAZEM 120MG SR CAP PO SCH (09:05)
[2020-10-01] MEDS: METOPROLOL TARTRATE 50 MG TAB PO SCH (09:05)
[2020-10-01] MEDS: TAMSULOSIN HCL 0.4 MG CAP.ER.24H PO SCH (09:06)
[2020-10-01] MEDS: LOSARTAN 100 MG TABLET PO SCH (09:06)
[2020-10-01] MEDS: PANTOPRAZOLE 40 MG/VIAL IVP SCH (09:14)
[2020-10-01 09:21] VITALS: BP 123/61
[2020-10-01] MEDS: FLUCONAZOLE 400 MG/NS 200 ML 200 ML IV SCH (09:36)
[2020-10-01] MEDS: FAT EMULSIONS 20% 250ML 250 ML IV SCH (09:53)
[2020-10-01] MEDS ORDERED: ACETAMINOPHEN WITH CODEINE 1 TAB TAB PO PRN ×2 (10:45)
[2020-10-01] MEDS: IPRATROPIUM/ALBUTEROL SULFATE 3 ML SOLUTION IH SCH ×2 (11:47→18:30)
[2020-10-01 11:55] VITALS: BP 113/66
[2020-10-01] MEDS: METRONIDAZOLE 500MG/100ML BAG 100 ML IVPB SCH ×2 (13:37→21:36)
[2020-10-01] MEDS: LACTATED RINGERS 1000ML 1,000 ML IV SCH (16:35)
[2020-10-01 16:43] VITALS: BP 130/52
[2020-10-01 20:00] VITALS: BP 116/73
[2020-10-02] VITALS (9 sets, daily range): BP systolic 95–150; BP diastolic 45–76
[2020-10-02] MEDS: IPRATROPIUM/ALBUTEROL SULFATE 3 ML SOLUTION IH SCH ×4 (00:20→19:06)
[2020-10-02] MEDS: ZOSYN 3.375GM+NS 50ML 50 ML IV SCH ×2 (00:33→13:31)
[2020-10-02] MEDS: METRONIDAZOLE 500MG/100ML BAG 100 ML IVPB SCH ×2 (05:50→13:31)
[2020-10-02] MEDS: INSULIN HUMULIN R 100 UNIT/ML 3ML SQ SCH ×4 (05:51→21:00)
[2020-10-02 06:25] LABS: HEMATOCRIT 23.8 % (42-54); MEAN CORPUSCULAR HEMOGLOBIN 29.1 pg (27.0-33.0); MEAN CORPUSCULAR HGB CONC 34.9 g/dL (32.0-36.0); MEAN CORPUSCULAR VOLUME 83.5 fL (79-99); RED BLOOD CELL COUNT(AUTO) 2.85 MIL/uL (4.50-6.20); RED CELL DISTRIBUTION WIDTH 15.4 % (11.0-15.5); WHITE BLOOD COUNT (AUTO) 10.5 K/uL (4.8-10.8)
[2020-10-02 06:47] LABS: ALBUMIN 1.4 g/dL (3.5-5.0); BILIRUBIN,TOTAL 0.9 mg/dL (0.2-1.0); CREATININE 1.2 mg/dL (0.5-1.5); POTASSIUM 3.6 mmol/L (3.5-5.1); TOTAL PROTEIN, SERUM 5.1 g/dL (6.0-8.3)
[2020-10-02] MEDS: FLUCONAZOLE 400 MG/NS 200 ML 200 ML IV SCH (08:26)
[2020-10-02] MEDS: LACTATED RINGERS 1000ML 1,000 ML IV SCH (08:26)
[2020-10-02] MEDS: LOSARTAN 100 MG TABLET PO SCH (08:27)
[2020-10-02] MEDS: TAMSULOSIN HCL 0.4 MG CAP.ER.24H PO SCH (08:27)
[2020-10-02] MEDS: METOPROLOL TARTRATE 50 MG TAB PO SCH (08:27)
[2020-10-02] MEDS: PROCALAMINE IV SOLUTION 1,000 ML IV SCH (08:28)
[2020-10-02] MEDS: METOCLOPRAMIDE 10 MG/2 ML VIAL IVP SCH (08:28)
[2020-10-02] MEDS: DILTIAZEM 120MG SR CAP PO SCH (08:28)
[2020-10-02] MEDS: FAT EMULSIONS 20% 250ML 250 ML IV SCH (08:28)
[2020-10-02] MEDS: PANTOPRAZOLE 40 MG/VIAL IVP SCH (09:29)
[2020-10-03] VITALS: BP 132/65
[2020-10-03] MEDS: METOCLOPRAMIDE 10 MG/2 ML VIAL IVP SCH ×3 (00:11→21:27)
[2020-10-03] MEDS: METRONIDAZOLE 500MG/100ML BAG 100 ML IVPB SCH ×4 (00:11→21:28)
[2020-10-03] MEDS: IPRATROPIUM/ALBUTEROL SULFATE 3 ML SOLUTION IH SCH ×4 (00:37→18:52)
[2020-10-03] MEDS: ZOSYN 3.375GM+NS 50ML 50 ML IV SCH ×2 (01:11→15:51)
[2020-10-03] MEDS: LACTATED RINGERS 1000ML 1,000 ML IV SCH ×2 (01:13→17:43)
[2020-10-03 04:00] VITALS: BP 129/65
[2020-10-03 05:34] LABS: HEMATOCRIT 25.8 % (42-54); MEAN CORPUSCULAR HEMOGLOBIN 28.6 pg (27.0-33.0); MEAN CORPUSCULAR HGB CONC 34.1 g/dL (32.0-36.0); MEAN CORPUSCULAR VOLUME 83.8 fL (79-99); RED BLOOD CELL COUNT(AUTO) 3.08 MIL/uL (4.50-6.20); RED CELL DISTRIBUTION WIDTH 15.4 % (11.0-15.5); WHITE BLOOD COUNT (AUTO) 11.1 K/uL (4.8-10.8)
[2020-10-03 05:44] LABS: INR 1.31 (0.85-1.15); PROTHROMBIN TIME 13.7 SEC (9.6-11.6)
[2020-10-03 05:56] LABS: ALBUMIN 1.4 g/dL (3.5-5.0); BILIRUBIN,TOTAL 0.9 mg/dL (0.2-1.0); CREATININE 1.3 mg/dL (0.5-1.5); POTASSIUM 3.7 mmol/L (3.5-5.1); TOTAL PROTEIN, SERUM 5.4 g/dL (6.0-8.3)
[2020-10-03] MEDS: INSULIN HUMULIN R 100 UNIT/ML 3ML SQ SCH ×4 (06:26→21:00)
[2020-10-03 07:53] VITALS: BP 128/68
[2020-10-03] MEDS: FLUCONAZOLE 400 MG/NS 200 ML 200 ML IV SCH (10:01)
[2020-10-03] MEDS: PANTOPRAZOLE 40 MG/VIAL IVP SCH (10:01)
[2020-10-03] MEDS: TAMSULOSIN HCL 0.4 MG CAP.ER.24H PO SCH (10:01)
[2020-10-03] MEDS: METOPROLOL TARTRATE 50 MG TAB PO SCH (10:01)
[2020-10-03] MEDS: HYDROCODONE/ACETAMINOPHEN 5/325 MG TAB PO PRN (10:11)
[2020-10-03 11:22] VITALS: BP 110/65
[2020-10-03] MEDS: DILTIAZEM 120MG SR CAP PO SCH (13:47)
[2020-10-03 16:13] VITALS: BP 139/65
[2020-10-03] MEDS: LOSARTAN 100 MG TABLET PO SCH (17:43)
[2020-10-03 20:00] VITALS: BP 142/73
[2020-10-04] VITALS: BP 145/68
[2020-10-04] MEDS: IPRATROPIUM/ALBUTEROL SULFATE 3 ML SOLUTION IH SCH ×5 (00:34→23:18)
[2020-10-04] MEDS: ZOSYN 3.375GM+NS 50ML 50 ML IV SCH ×2 (01:00→14:19)
[2020-10-04 04:00] VITALS: BP 138/86
[2020-10-04] MEDS: METRONIDAZOLE 500MG/100ML BAG 100 ML IVPB SCH ×3 (05:19→20:50)
[2020-10-04] MEDS: INSULIN HUMULIN R 100 UNIT/ML 3ML SQ SCH ×4 (05:28→19:54)
[2020-10-04 07:45] VITALS: BP 132/78
[2020-10-04] MEDS: FLUCONAZOLE 400 MG/NS 200 ML 200 ML IV SCH (09:44)
[2020-10-04] MEDS: LACTATED RINGERS 1000ML 1,000 ML IV SCH (09:45)
[2020-10-04] MEDS: METOCLOPRAMIDE 10 MG/2 ML VIAL IVP SCH ×2 (09:49→20:50)
[2020-10-04] MEDS: PANTOPRAZOLE 40 MG/VIAL IVP SCH (09:49)
[2020-10-04] MEDS: METOPROLOL TARTRATE 50 MG TAB PO SCH (09:51)
[2020-10-04] MEDS: ACETAMINOPHEN 325 MG TAB PO PRN ×2 (09:52→12:34)
[2020-10-04] MEDS: TAMSULOSIN HCL 0.4 MG CAP.ER.24H PO SCH (09:52)
[2020-10-04] MEDS: LOSARTAN 100 MG TABLET PO SCH (09:52)
[2020-10-04] MEDS: DILTIAZEM 120MG SR CAP PO SCH (09:53)
[2020-10-04 11:43] VITALS: BP 125/81
[2020-10-04] MEDS: HYDROCODONE/ACETAMINOPHEN 5/325 MG TAB PO PRN (14:19)
[2020-10-04 16:06] VITALS: BP 102/63
[2020-10-04 19:26] VITALS: BP 137/50
[2020-10-05] VITALS (7 sets, daily range): BP systolic 107–142; BP diastolic 55–92
[2020-10-05] MEDS: ZOSYN 3.375GM+NS 50ML 50 ML IV SCH ×3 (00:08→23:58)
[2020-10-05] MEDS: LACTATED RINGERS 1000ML 1,000 ML IV SCH ×2 (00:08→17:52)
[2020-10-05] MEDS: METRONIDAZOLE 500MG/100ML BAG 100 ML IVPB SCH ×3 (05:03→20:15)
[2020-10-05] MEDS: INSULIN HUMULIN R 100 UNIT/ML 3ML SQ SCH ×4 (05:38→19:53)
[2020-10-05] MEDS: HYDROCODONE/ACETAMINOPHEN 5/325 MG TAB PO PRN ×2 (06:09→20:15)
[2020-10-05] MEDS: IPRATROPIUM/ALBUTEROL SULFATE 3 ML SOLUTION IH SCH ×4 (06:20→23:49)
[2020-10-05] MEDS: DILTIAZEM 120MG SR CAP PO SCH (09:48)
[2020-10-05] MEDS: PANTOPRAZOLE 40 MG/VIAL IVP SCH (09:48)
[2020-10-05] MEDS: TAMSULOSIN HCL 0.4 MG CAP.ER.24H PO SCH (09:48)
[2020-10-05] MEDS: METOCLOPRAMIDE 10 MG/2 ML VIAL IVP SCH ×2 (09:48→20:15)
[2020-10-05] MEDS: FLUCONAZOLE 400 MG/NS 200 ML 200 ML IV SCH (09:48)
[2020-10-05] MEDS: LOSARTAN 100 MG TABLET PO SCH (09:48)
[2020-10-05] MEDS: METOPROLOL TARTRATE 50 MG TAB PO SCH (09:48)
[2020-10-05 20:03] LABS: INR 1.24 (0.85-1.15)
[2020-10-05] MEDS: WARFARIN SODIUM 5 MG TAB PO SCH (20:15)
[2020-10-06] MEDS: HYDROCODONE/ACETAMINOPHEN 5/325 MG TAB PO PRN (01:40)
[2020-10-06 04:07] VITALS: BP 148/75
[2020-10-06] MEDS: LACTATED RINGERS 1000ML 1,000 ML IV SCH ×2 (04:48→22:57)
[2020-10-06] MEDS: METRONIDAZOLE 500MG/100ML BAG 100 ML IVPB SCH ×3 (04:48→19:45)
[2020-10-06] MEDS: INSULIN HUMULIN R 100 UNIT/ML 3ML SQ SCH ×4 (06:13→20:33)
[2020-10-06] MEDS: IPRATROPIUM/ALBUTEROL SULFATE 3 ML SOLUTION IH SCH ×4 (07:04→23:12)
[2020-10-06 07:28] VITALS: BP 144/89
[2020-10-06] MEDS: FLUCONAZOLE 400 MG/NS 200 ML 200 ML IV SCH (08:57)
[2020-10-06] MEDS: METOCLOPRAMIDE 10 MG/2 ML VIAL IVP SCH ×2 (08:57→19:45)
[2020-10-06] MEDS: PANTOPRAZOLE 40 MG/VIAL IVP SCH (08:57)
[2020-10-06] MEDS: DILTIAZEM 120MG SR CAP PO SCH (08:58)
[2020-10-06] MEDS: LOSARTAN 100 MG TABLET PO SCH (08:58)
[2020-10-06] MEDS: METOPROLOL TARTRATE 50 MG TAB PO SCH (08:58)
[2020-10-06] MEDS: TAMSULOSIN HCL 0.4 MG CAP.ER.24H PO SCH (08:58)
[2020-10-06 11:53] VITALS: BP 125/69
[2020-10-06] MEDS: ZOSYN 3.375GM+NS 50ML 50 ML IV SCH ×2 (12:10→22:58)
[2020-10-06 15:48] VITALS: BP 120/67
[2020-10-06 19:29] VITALS: BP 123/69
[2020-10-07] VITALS (7 sets, daily range): BP systolic 122–151; BP diastolic 62–80
[2020-10-07] MEDS: HYDROCODONE/ACETAMINOPHEN 5/325 MG TAB PO PRN ×2 (04:36→16:53)
[2020-10-07] MEDS: METRONIDAZOLE 500MG/100ML BAG 100 ML IVPB SCH ×2 (04:36→13:15)
[2020-10-07] MEDS: INSULIN HUMULIN R 100 UNIT/ML 3ML SQ SCH ×4 (05:29→21:00)
[2020-10-07] MEDS: IPRATROPIUM/ALBUTEROL SULFATE 3 ML SOLUTION IH SCH ×3 (06:47→18:44)
[2020-10-07] MEDS: PANTOPRAZOLE 40 MG/VIAL IVP SCH (09:13)
[2020-10-07] MEDS: DILTIAZEM 120MG SR CAP PO SCH (09:14)
[2020-10-07] MEDS: TAMSULOSIN HCL 0.4 MG CAP.ER.24H PO SCH (09:14)
[2020-10-07] MEDS: METOPROLOL TARTRATE 50 MG TAB PO SCH (09:14)
[2020-10-07] MEDS: METOCLOPRAMIDE 10 MG/2 ML VIAL IVP SCH ×2 (09:14→21:24)
[2020-10-07] MEDS: LOSARTAN 100 MG TABLET PO SCH (09:14)
[2020-10-07] MEDS: FLUCONAZOLE 400 MG/NS 200 ML 200 ML IV SCH (09:19)
[2020-10-07] MEDS: ZOSYN 3.375GM+NS 50ML 50 ML IV SCH (12:27)
[2020-10-07] MEDS: LACTATED RINGERS 1000ML 1,000 ML IV SCH (14:27)
[2020-10-08] MEDS: IPRATROPIUM/ALBUTEROL SULFATE 3 ML SOLUTION IH SCH ×4 (00:05→19:25)
[2020-10-08 03:26] VITALS: BP 122/69
[2020-10-08] MEDS: LACTATED RINGERS 1000ML 1,000 ML IV SCH ×2 (05:51→21:15)
[2020-10-08] MEDS: INSULIN HUMULIN R 100 UNIT/ML 3ML SQ SCH ×4 (06:45→20:21)
[2020-10-08 08:00] VITALS: BP 124/64
[2020-10-08] MEDS: FLUCONAZOLE 400 MG/NS 200 ML 200 ML IV SCH (09:05)
[2020-10-08] MEDS: TAMSULOSIN HCL 0.4 MG CAP.ER.24H PO SCH (09:05)
[2020-10-08] MEDS: METOCLOPRAMIDE 10 MG/2 ML VIAL IVP SCH ×2 (09:06→20:18)
[2020-10-08] MEDS: DILTIAZEM 120MG SR CAP PO SCH (09:06)
[2020-10-08] MEDS: LOSARTAN 100 MG TABLET PO SCH (09:06)
[2020-10-08] MEDS: PANTOPRAZOLE 40 MG/VIAL IVP SCH (09:06)
[2020-10-08] MEDS: METOPROLOL TARTRATE 50 MG TAB PO SCH (09:06)
[2020-10-08] MEDS: WARFARIN SODIUM 5 MG TAB PO SCH (09:06)
[2020-10-08] MEDS: DOCUSATE SODIUM 100 MG CAP PO SCH (09:07)
[2020-10-08] MEDS ORDERED: PHARMACY COMMUNICATION MISC SCH (11:15)
[2020-10-08 11:26] VITALS: BP 144/83
[2020-10-08] MEDS: ACETAMINOPHEN 325 MG TAB PO PRN ×2 (11:26→17:00)
[2020-10-08] MEDS: ZOSYN 3.375GM+NS 50ML 50 ML IV SCH ×2 (11:26→22:53)
[2020-10-08] MEDS: METRONIDAZOLE 500MG/100ML BAG 100 ML IVPB SCH ×2 (13:20→22:52)
[2020-10-08 16:00] VITALS: BP 130/75
[2020-10-08 19:35] VITALS: BP 136/70
[2020-10-08 23:52] VITALS: BP 148/71
[2020-10-09] MEDS: IPRATROPIUM/ALBUTEROL SULFATE 3 ML SOLUTION IH SCH ×3 (00:28→19:36)
[2020-10-09] MEDS: ACETAMINOPHEN 325 MG TAB PO PRN ×2 (03:45→08:57)
[2020-10-09 04:05] VITALS: BP 133/76
[2020-10-09] MEDS: METRONIDAZOLE 500MG/100ML BAG 100 ML IVPB SCH ×3 (05:45→21:40)
[2020-10-09] MEDS: INSULIN HUMULIN R 100 UNIT/ML 3ML SQ SCH ×4 (06:26→20:41)
[2020-10-09 08:00] VITALS: BP 134/66
[2020-10-09] MEDS: PANTOPRAZOLE 40 MG/VIAL IVP SCH (08:57)
[2020-10-09] MEDS: METOCLOPRAMIDE 10 MG/2 ML VIAL IVP SCH ×2 (08:57→20:31)
[2020-10-09] MEDS: DILTIAZEM 120MG SR CAP PO SCH (08:57)
[2020-10-09] MEDS: DOCUSATE SODIUM 100 MG CAP PO SCH (08:58)
[2020-10-09] MEDS: LOSARTAN 100 MG TABLET PO SCH (08:58)
[2020-10-09] MEDS: FLUCONAZOLE 400 MG/NS 200 ML 200 ML IV SCH (08:58)
[2020-10-09] MEDS: TAMSULOSIN HCL 0.4 MG CAP.ER.24H PO SCH (08:58)
[2020-10-09] MEDS: METOPROLOL TARTRATE 50 MG TAB PO SCH (08:58)
[2020-10-09 12:05] VITALS: BP 135/77
[2020-10-09 12:22] LABS: HEMATOCRIT 29.8 % (42-54); MEAN CORPUSCULAR HEMOGLOBIN 28.8 pg (27.0-33.0); MEAN CORPUSCULAR HGB CONC 33.2 g/dL (32.0-36.0); MEAN CORPUSCULAR VOLUME 86.6 fL (79-99); PLATELET COUNT (AUTO) 297 K/uL (130-400); RED BLOOD CELL COUNT(AUTO) 3.44 MIL/uL (4.50-6.20); RED CELL DISTRIBUTION WIDTH 15.9 % (11.0-15.5); WHITE BLOOD COUNT (AUTO) 7.7 K/uL (4.8-10.8)
[2020-10-09 12:38] LABS: CREATININE 1.1 mg/dL (0.5-1.5); POTASSIUM 3.5 mmol/L (3.5-5.1)
[2020-10-09 13:22] LABS: BAND NEUTROPHILS % (MANUAL) 1 % (0-2); BASOPHILS % (MANUAL) 2 % (0-2); LYMPHOCYTES % (MANUAL) 3 % (22-44); MONOCYTES % (MANUAL) 6 % (2-9); SEGMENTED NEUTROPHILS % 88 % (40-70)
[2020-10-09 13:23] LABS: MAN.DIFF COMMENT-IMPRESSION MANUAL DIFFERENTIAL
[2020-10-09 13:24] LABS: PLATELET MORPHOLOGY COMMENT ADEQUATE
[2020-10-09] MEDS: TRAMADOL HCL 50 MG TABLET PO PRN ×2 (14:00→20:32)
[2020-10-09] MEDS: ZOSYN 3.375GM+NS 50ML 50 ML IV SCH (14:00)
[2020-10-09 16:00] VITALS: BP 132/75
[2020-10-09] MEDS: LACTATED RINGERS 1000ML 1,000 ML IV SCH (16:40)
[2020-10-09 20:10] VITALS: BP 143/80
[2020-10-09 23:25] VITALS: BP 151/78
[2020-10-10] MEDS: ZOSYN 3.375GM+NS 50ML 50 ML IV SCH ×3 (00:02→23:30)
[2020-10-10] MEDS: IPRATROPIUM/ALBUTEROL SULFATE 3 ML SOLUTION IH SCH ×4 (00:27→19:53)
[2020-10-10 03:45] VITALS: BP 142/82
[2020-10-10] MEDS: METRONIDAZOLE 500MG/100ML BAG 100 ML IVPB SCH ×3 (04:48→21:18)
[2020-10-10] MEDS: LACTATED RINGERS 1000ML 1,000 ML IV SCH ×2 (04:48→21:19)
[2020-10-10] MEDS: TRAMADOL HCL 50 MG TABLET PO PRN ×2 (04:49→19:47)
[2020-10-10] MEDS: INSULIN HUMULIN R 100 UNIT/ML 3ML SQ SCH ×4 (05:36→20:29)
[2020-10-10 07:34] VITALS: BP 134/75
[2020-10-10] MEDS: FLUCONAZOLE 400 MG/NS 200 ML 200 ML IV SCH (08:19)
[2020-10-10] MEDS: PANTOPRAZOLE 40 MG/VIAL IVP SCH (08:20)
[2020-10-10] MEDS: METOPROLOL TARTRATE 50 MG TAB PO SCH (08:21)
[2020-10-10] MEDS: LOSARTAN 100 MG TABLET PO SCH (08:21)
[2020-10-10] MEDS: TAMSULOSIN HCL 0.4 MG CAP.ER.24H PO SCH (08:21)
[2020-10-10] MEDS: METOCLOPRAMIDE 10 MG/2 ML VIAL IVP SCH ×2 (08:21→19:42)
[2020-10-10] MEDS: DILTIAZEM 120MG SR CAP PO SCH (08:21)
[2020-10-10] MEDS: DOCUSATE SODIUM 100 MG CAP PO SCH (08:21)
[2020-10-10 11:42] VITALS: BP 141/53
[2020-10-10 15:43] VITALS: BP 138/77
[2020-10-10 19:55] VITALS: BP 145/85
[2020-10-10 23:46] VITALS: BP 147/45
[2020-10-11] MEDS: IPRATROPIUM/ALBUTEROL SULFATE 3 ML SOLUTION IH SCH ×5 (00:05→23:33)
[2020-10-11 04:00] VITALS: BP 145/85
[2020-10-11] MEDS: INSULIN HUMULIN R 100 UNIT/ML 3ML SQ SCH ×4 (06:11→21:00)
[2020-10-11] MEDS: METRONIDAZOLE 500MG/100ML BAG 100 ML IVPB SCH ×3 (06:13→22:54)
[2020-10-11 06:32] LABS: HEMATOCRIT 31.3 % (42-54); MEAN CORPUSCULAR HEMOGLOBIN 28.3 pg (27.0-33.0); MEAN CORPUSCULAR HGB CONC 33.9 g/dL (32.0-36.0); MEAN CORPUSCULAR VOLUME 83.7 fL (79-99); RED BLOOD CELL COUNT(AUTO) 3.74 MIL/uL (4.50-6.20); RED CELL DISTRIBUTION WIDTH 15.1 % (11.0-15.5)
[2020-10-11 06:48] LABS: ALBUMIN 1.6 g/dL (3.5-5.0); BILIRUBIN,TOTAL 0.5 mg/dL (0.2-1.0); CREATININE 0.6 mg/dL (0.5-1.5); POTASSIUM 3.5 mmol/L (3.5-5.1); TOTAL PROTEIN, SERUM 6.1 g/dL (6.0-8.3)
[2020-10-11 08:00] VITALS: BP 138/76
[2020-10-11] MEDS: PANTOPRAZOLE 40 MG/VIAL IVP SCH (09:39)
[2020-10-11] MEDS: METOCLOPRAMIDE 10 MG/2 ML VIAL IVP SCH ×2 (09:39→20:35)
[2020-10-11] MEDS: DILTIAZEM 120MG SR CAP PO SCH (09:40)
[2020-10-11] MEDS: FLUCONAZOLE 400 MG/NS 200 ML 200 ML IV SCH (09:40)
[2020-10-11] MEDS: TAMSULOSIN HCL 0.4 MG CAP.ER.24H PO SCH (09:40)
[2020-10-11] MEDS: LOSARTAN 100 MG TABLET PO SCH (09:40)
[2020-10-11] MEDS: METOPROLOL TARTRATE 50 MG TAB PO SCH (09:40)
[2020-10-11] MEDS: DOCUSATE SODIUM 100 MG CAP PO SCH (09:41)
[2020-10-11] MEDS: LACTATED RINGERS 1000ML 1,000 ML IV SCH (10:51)
[2020-10-11 11:45] VITALS: BP 142/84
[2020-10-11] MEDS: ZOSYN 3.375GM+NS 50ML 50 ML IV SCH ×2 (12:10→23:29)
[2020-10-11 16:00] VITALS: BP 136/75
[2020-10-11 20:00] VITALS: BP 142/76
[2020-10-11] MEDS: ACETAMINOPHEN 325 MG TAB PO PRN (21:00)
[2020-10-11 23:34] VITALS: BP 137/71
[2020-10-12 04:00] VITALS: BP 158/79
[2020-10-12] MEDS: METRONIDAZOLE 500MG/100ML BAG 100 ML IVPB SCH ×2 (05:16→14:17)
[2020-10-12] MEDS: ACETAMINOPHEN 325 MG TAB PO PRN ×2 (05:22→12:26)
[2020-10-12] MEDS: INSULIN HUMULIN R 100 UNIT/ML 3ML SQ SCH ×3 (05:44→16:30)
[2020-10-12 06:09] LABS: HEMATOCRIT 32.2 % (42-54); MEAN CORPUSCULAR HEMOGLOBIN 28.2 pg (27.0-33.0); MEAN CORPUSCULAR HGB CONC 34.2 g/dL (32.0-36.0); MEAN CORPUSCULAR VOLUME 82.6 fL (79-99); RED BLOOD CELL COUNT(AUTO) 3.9 MIL/uL (4.50-6.20); RED CELL DISTRIBUTION WIDTH 15.1 % (11.0-15.5); WHITE BLOOD COUNT (AUTO) 8.3 K/uL (4.8-10.8)
[2020-10-12 06:24] LABS: ALBUMIN 1.7 g/dL (3.5-5.0); BILIRUBIN,TOTAL 0.6 mg/dL (0.2-1.0); POTASSIUM 3.7 mmol/L (3.5-5.1); TOTAL PROTEIN, SERUM 6.2 g/dL (6.0-8.3)
[2020-10-12] MEDS: IPRATROPIUM/ALBUTEROL SULFATE 3 ML SOLUTION IH SCH ×2 (06:58→11:18)
[2020-10-12 08:00] VITALS: BP_SYST 148; BP_SYST 151; BP_DIAS 70; BP_DIAS 79
[2020-10-12] MEDS: DILTIAZEM 120MG SR CAP PO SCH (08:41)
[2020-10-12] MEDS: LOSARTAN 100 MG TABLET PO SCH (08:41)
[2020-10-12] MEDS: METOPROLOL TARTRATE 50 MG TAB PO SCH (08:41)
[2020-10-12] MEDS: PANTOPRAZOLE 40 MG/VIAL IVP SCH (08:44)
[2020-10-12] MEDS: TAMSULOSIN HCL 0.4 MG CAP.ER.24H PO SCH (08:44)
[2020-10-12] MEDS: METOCLOPRAMIDE 10 MG/2 ML VIAL IVP SCH (08:44)
[2020-10-12] MEDS: DOCUSATE SODIUM 100 MG CAP PO SCH (08:44)
[2020-10-12] MEDS: FLUCONAZOLE 400 MG/NS 200 ML 200 ML IV SCH (08:44)
[2020-10-12 09:13] LABS: INR 1.47 (0.85-1.15); PROTHROMBIN TIME 15.5 SEC (9.6-11.6)
[2020-10-12 12:00] VITALS: BP 143/80
[2020-10-12] MEDS: ZOSYN 3.375GM+NS 50ML 50 ML IV SCH (12:02)
[2020-10-12] MEDS: WARFARIN SODIUM 5 MG TAB PO SCH (12:02)
[2020-10-12] MEDS ORDERED: KCL 20 MEQ ERTAB PO SCH (15:45)
[2020-10-12 16:00] VITALS: BP 137/77
== END 2020-10-12 18:31 | DRG 853 ==
LOC: EDH 04:10 → EDHIP 07:06 → 2DH 09-23 12:15 → 2CH 09-25 20:23 → 4DH 09-30 20:57
PROVIDERS: ADMIT Internal Medicine; ATTEND Internal Medicine
PROC: 02HV33Z Insertion of Infusion Device into Superior Vena Cava, Percutaneous Approach (ICD-10-PCS; 2020-09-24)
PROC: B548ZZA Ultrasonography of Superior Vena Cava, Guidance (ICD-10-PCS; 2020-09-24)
PROC: 0DBN0ZZ Excision of Sigmoid Colon, Open Approach (ICD-10-PCS; principal; 2020-09-25 19:00)
PROC: 0D1N0Z4 Bypass Sigmoid Colon to Cutaneous, Open Approach (ICD-10-PCS; 2020-09-25 19:00)
PROC: 5A09357 Assistance with Respiratory Ventilation, Less than 24 Consecutive Hours, Continuous Positive Airway Pressure (ICD-10-PCS; 2020-09-26)
DX: A41.9 Sepsis, unspecified organism (principal); K65.0 Generalized (acute) peritonitis; J18.9 Pneumonia, unspecified organism; K57.20 Diverticulitis of large intestine with perforation and abscess without bleeding; N17.9 Acute kidney failure, unspecified; D68.59 Other primary thrombophilia; I13.0 Hypertensive heart and chronic kidney disease with heart failure and stage 1 through stage 4 chronic kidney disease, or unspecified chronic kidney disease; T81.30XA Disruption of wound, unspecified, initial encounter; T81.41XA Infection following a procedure, superficial incisional surgical site, initial encounter; I48.20 Chronic atrial fibrillation, unspecified; E46 Unspecified protein-calorie malnutrition; I50.30 Unspecified diastolic (congestive) heart failure; I48.0 Paroxysmal atrial fibrillation; I25.10 Atherosclerotic heart disease of native coronary artery without angina pectoris; N18.9 Chronic kidney disease, unspecified; E66.9 Obesity, unspecified; Z20.822 Contact with and (suspected) exposure to COVID-19; E86.0 Dehydration; M54.9 Dorsalgia, unspecified; R06.03 Acute respiratory distress; D64.9 Anemia, unspecified; E78.5 Hyperlipidemia, unspecified; M48.00 Spinal stenosis, site unspecified; M19.90 Unspecified osteoarthritis, unspecified site; R54 Age-related physical debility; I45.10 Unspecified right bundle-branch block; I34.0 Nonrheumatic mitral (valve) insufficiency; E11.51 Type 2 diabetes mellitus with diabetic peripheral angiopathy without gangrene; E11.22 Type 2 diabetes mellitus with diabetic chronic kidney disease; Z79.01 Long term (current) use of anticoagulants; Z91.81 History of falling; Z68.26 Body mass index [BMI] 26.0-26.9, adult
CPT/HCPCS: 36415; 36600; 71045; 74018; 74176; 80048; 80053; 81001; 82803; 82948; 83605; 83690; 83735; 84100; 84484; 85025; 85027; 85610; 85651; 85730; 86850; 86900; 86901; 86923; 87040; 87070; 87076; 87077; 87088; 87186; 87205; 87426; 88307; 93005; 93306; 93356; 94002; 94003; 94640; 94664; 94667; 94668; 97039; 99291; A4344; C1751; C1894; C9113; G0378; J1100; J1170; J1450; J2001; J2250; J2405; J2543; J2550; J2704; J2765; J3010; J3430; J3475; J3480; J3490; J7030; J7050; J7120; Q0161; U0003

== ENCOUNTER → 2021-03-19 | Emergency (ER) | payer OTHER, MEDICARE ==
[~2021-03-19] VITALS: Ht 167.6 cm; Wt 77.1 kg
[~2021-03-19] MED LIST changes: +ALLO100T PO; -HYDR-4453 PO; -LISI40TA9 PO; +LOSA100T58 PO; +PRED20TA3 PO; +TAMS-1 PO; +TEST200V21 IM; -WARF2.5T PO
[2021-03-19 12:32] VITALS: BP 164/88
== END | disposition left against medical advice (07) ==
LOC: EDH 12:30
DX: M79.89 Other specified soft tissue disorders (principal); Z53.21 Procedure and treatment not carried out due to patient leaving prior to being seen by health care provider

== ENCOUNTER 2021-03-27 06:36 | Day surgery (SDC) | payer OTHER, MEDICARE ==
[2021-03-27] VITALS (8 sets, daily range): BP systolic 107–166; BP diastolic 63–81
[~2021-03-27] VITALS: Ht 195.6 cm; Wt 72.6 kg
[2021-03-27] MEDS ORDERED: 0.9%NACL 1000ML 1,000 ML IV ONE ×2 (07:18→07:25)
[2021-03-27] MEDS ORDERED: LIDOCAINE HCL 1% 20 ML VIAL ONE (08:02)
[2021-03-27] MEDS ORDERED: PROPOFOL 10 MG/ML 20ML VIAL IV ONE (08:02)
== END 2021-03-27 09:10 | disposition home or self-care (01) ==
LOC: DAH 06:36
PROVIDERS: ATTEND Surgery
DX: K63.1 Perforation of intestine (nontraumatic) (principal); Z20.822 Contact with and (suspected) exposure to COVID-19; K94.03 Colostomy malfunction; I10 Essential (primary) hypertension; I25.10 Atherosclerotic heart disease of native coronary artery without angina pectoris; I48.91 Unspecified atrial fibrillation; Z79.899 Other long term (current) drug therapy
CPT/HCPCS: 44388; 87635; A4215 ×2; A4221; A4222; A4223; A4606; A4620; A4663; C9803; J2704; J7030 ×2; 45330; 45384

== ENCOUNTER → 2021-04-12 | Outpatient (CLI) | payer OTHER, MEDICARE ==
[~2021-04-12] MED LIST changes: -ALLO100T PO; -LOSA100T58 PO; -PRED20TA3 PO; -TAMS-1 PO; -TIZA4CAP8 PO
== END | disposition home or self-care (01) ==
LOC: DAH 10:00 → EDSTATUS 04-17 08:50
PROVIDERS: ATTEND Surgery
DX: Z93.3 Colostomy status (principal); Z20.822 Contact with and (suspected) exposure to COVID-19
CPT/HCPCS: 87635

== ENCOUNTER 2021-07-17 10:00 | Inpatient (IN) | payer OTHER, MEDICARE ==
[~2021-07-17] VITALS: Ht 167.6 cm; Wt 76.5 kg
[~2021-07-17 10:00] MED LIST changes: -DONE10TA43 PO; -METO-391 PO
[2021-07-17 15:43] LABS: BASOPHILS % (AUTO) 0.8 % (0.0-5.0); EOSINOPHILS % (AUTO) 1.8 % (0.0-8.0); HEMATOCRIT 39.6 % (42-54); LYMPHOCYTES % (AUTO) 38.3 % (21.0-51.0); MEAN CORPUSCULAR HEMOGLOBIN 24.9 pg (27.0-33.0); MEAN CORPUSCULAR HGB CONC 31.3 g/dL (32.0-36.0); MEAN CORPUSCULAR VOLUME 79.5 fL (79-99); MONOCYTES % (AUTO) 11.4 % (3.0-13.0); NEUTROPHILS % (AUTO) 47.5 % (40.0-77.0); PLATELET COUNT (AUTO) 185 K/uL (130-400); RED BLOOD CELL COUNT(AUTO) 4.98 MIL/uL (4.50-6.20); RED CELL DISTRIBUTION WIDTH 17.6 % (11.0-15.5); WHITE BLOOD COUNT (AUTO) 6.1 K/uL (4.8-10.8)
[2021-07-17 15:58] LABS: INR 1.11 (0.85-1.15)
[2021-07-17 15:59] LABS: PARTIAL THROMBOPLASTIN TIME 28.8 SEC (26.3-35.5)
[2021-07-17 16:11] LABS: CREATININE 1.3 mg/dL (0.5-1.5); POTASSIUM 3.7 mmol/L (3.5-5.1)
[2021-07-20] MEDS: CEFAZOLIN SODIUM 1 GM VIAL IVP SCH (12:00)
[2021-07-21] MEDS: CEFAZOLIN SODIUM 1 GM VIAL IVP SCH (12:00)
[2021-07-21 12:15] VITALS: BP 142/68
[2021-07-21] MEDS ORDERED: METO-391 PO (14:41)
[2021-07-22] MEDS: CEFAZOLIN SODIUM 1 GM VIAL IVP SCH (12:00)
[2021-07-23] MEDS: CEFAZOLIN SODIUM 1 GM VIAL IVP SCH (12:00)
[2021-07-24] VITALS (23 sets, daily range): BP systolic 95–150; BP diastolic 55–103
[2021-07-24] MEDS ORDERED: LACTATED RINGERS 1000ML 1,000 ML IV ONE (10:42)
[2021-07-24] MEDS ORDERED: SUCCINYLCHOLINE 200MG/10ML SYR ONE (11:15)
[2021-07-24] MEDS ORDERED: LIDOCAINE PF 100MG/5ML (2%) SYRINGE 5ML ONE (11:15)
[2021-07-24] MEDS ORDERED: ROCURONIUM 10MG/1ML SYR 10 MG/ML ML ONE (11:16)
[2021-07-24] MEDS ORDERED: FENTANYL CITRATE PF 50 MCG/1 ML 2ML VIAL ONE (11:16)
[2021-07-24] MEDS ORDERED: PROPOFOL 10 MG/ML 20ML VIAL IV ONE (11:16)
[2021-07-24] MEDS ORDERED: MIDAZOLAM HCL 1 MG/ML 2ML VIAL ONE (11:17)
[2021-07-24] MEDS: CEFAZOLIN SODIUM 1 GM VIAL IVP SCH ×2 (11:30→12:00)
[2021-07-24] MEDS ORDERED: EPHEDRINE SULFATE 50 MG/ML AMPULE ONE (11:49)
[2021-07-24] MEDS ORDERED: GLYCOPYRROLATE 1 MG/5 ML SYRINGE ONE (12:11)
[2021-07-24] MEDS ORDERED: ONDANSETRON 4MG INJ ONE (13:22)
[2021-07-24] MEDS ORDERED: NEOSTIGMINE 5MG/5ML SYR IV ONE (13:22)
[2021-07-24] MEDS ORDERED: MEPERIDINE-PF 25 MG/ML SYG ONE ×2 (13:23→14:17)
[2021-07-24] MEDS ORDERED: KETOROLAC 30MG VIAL (30MG/ML) ONE (13:34)
[2021-07-24] MEDS: LACTATED RINGERS 1000ML 1,000 ML IV SCH ×3 (13:59→22:00)
[2021-07-24] MEDS: HEPARIN 5,000 UNIT VIAL SQ SCH ×2 (16:22→21:42)
[2021-07-24] MEDS: MORPHINE 4 MG SYG IV PRN ×2 (17:35→23:34)
[2021-07-24] MEDS: ZOSYN 3.375GM+NS 50ML 50 ML IV SCH (21:34)
[2021-07-24] MEDS: KETOROLAC 30MG VIAL (30MG/ML) IM PRN (22:01)
[2021-07-25 00:08] VITALS: BP 113/62
[2021-07-25 04:08] VITALS: BP 135/62
[2021-07-25] MEDS: KETOROLAC 30MG VIAL (30MG/ML) IM PRN ×2 (04:17→21:20)
[2021-07-25] MEDS: ZOSYN 3.375GM+NS 50ML 50 ML IV SCH (04:17)
[2021-07-25] MEDS: LACTATED RINGERS 1000ML 1,000 ML IV SCH ×3 (04:17→22:00)
[2021-07-25] MEDS: MORPHINE 4 MG SYG IV PRN ×4 (05:06→23:30)
[2021-07-25 05:32] LABS: BASOPHILS % (AUTO) 0.2 % (0.0-5.0); EOSINOPHILS % (AUTO) 0.4 % (0.0-8.0); HEMATOCRIT 34.5 % (42-54); LYMPHOCYTES % (AUTO) 17.3 % (21.0-51.0); MEAN CORPUSCULAR HEMOGLOBIN 24.7 pg (27.0-33.0); MEAN CORPUSCULAR HGB CONC 31.6 g/dL (32.0-36.0); MEAN CORPUSCULAR VOLUME 78.2 fL (79-99); MONOCYTES % (AUTO) 6.8 % (3.0-13.0); NEUTROPHILS % (AUTO) 75.1 % (40.0-77.0); PLATELET COUNT (AUTO) 198 K/uL (130-400); RED BLOOD CELL COUNT(AUTO) 4.41 MIL/uL (4.50-6.20); RED CELL DISTRIBUTION WIDTH 17.7 % (11.0-15.5); WHITE BLOOD COUNT (AUTO) 9.1 K/uL (4.8-10.8)
[2021-07-25 06:14] LABS: CREATININE 1.2 mg/dL (0.5-1.5); POTASSIUM 4.2 mmol/L (3.5-5.1)
[2021-07-25 08:00] VITALS: BP 127/60
[2021-07-25] MEDS: METOPROLOL SUCCINATE 50 MG TAB.SR.24H PO SCH (09:00)
[2021-07-25] MEDS: DILTIAZEM 120MG SR CAP PO SCH (09:00)
[2021-07-25] MEDS: PREGABALIN 100 MG CAPSULE PO SCH ×2 (09:00→21:20)
[2021-07-25 12:00] VITALS: BP 137/64
[2021-07-25] MEDS: CEFAZOLIN SODIUM 1 GM VIAL IVP SCH (12:00)
[2021-07-25] MEDS: HEPARIN 5,000 UNIT VIAL SQ SCH (12:37)
[2021-07-25 16:00] VITALS: BP 147/76
[2021-07-25 20:04] VITALS: BP 154/80
[2021-07-26 00:04] VITALS: BP 160/76
[2021-07-26] MEDS: LACTATED RINGERS 1000ML 1,000 ML IV SCH ×2 (01:06→17:38)
[2021-07-26 04:04] VITALS: BP 164/81
[2021-07-26] MEDS: KETOROLAC 30MG VIAL (30MG/ML) IM PRN ×2 (05:59→17:29)
[2021-07-26 06:07] LABS: BASOPHILS % (AUTO) 0.3 % (0.0-5.0); EOSINOPHILS % (AUTO) 0.9 % (0.0-8.0); HEMATOCRIT 35.2 % (42-54); LYMPHOCYTES % (AUTO) 14.3 % (21.0-51.0); MEAN CORPUSCULAR HEMOGLOBIN 25.2 pg (27.0-33.0); MEAN CORPUSCULAR HGB CONC 31.5 g/dL (32.0-36.0); MEAN CORPUSCULAR VOLUME 79.8 fL (79-99); MONOCYTES % (AUTO) 7.5 % (3.0-13.0); NEUTROPHILS % (AUTO) 76.5 % (40.0-77.0); PLATELET COUNT (AUTO) 171 K/uL (130-400); RED BLOOD CELL COUNT(AUTO) 4.41 MIL/uL (4.50-6.20); RED CELL DISTRIBUTION WIDTH 17.7 % (11.0-15.5); WHITE BLOOD COUNT (AUTO) 8.8 K/uL (4.8-10.8)
[2021-07-26 06:30] LABS: ALBUMIN 2.6 g/dL (3.5-5.0); BILIRUBIN,TOTAL 0.7 mg/dL (0.2-1.0); CREATININE 1.2 mg/dL (0.5-1.5); POTASSIUM 4.1 mmol/L (3.5-5.1); TOTAL PROTEIN, SERUM 5.7 g/dL (6.0-8.3)
[2021-07-26 08:00] VITALS: BP 166/81
[2021-07-26] MEDS: METOPROLOL SUCCINATE 50 MG TAB.SR.24H PO SCH (09:08)
[2021-07-26] MEDS: PREGABALIN 100 MG CAPSULE PO SCH ×2 (09:08→20:37)
[2021-07-26] MEDS: DILTIAZEM 120MG SR CAP PO SCH (09:08)
[2021-07-26 12:00] VITALS: BP 157/84
[2021-07-26] MEDS: CEFAZOLIN SODIUM 1 GM VIAL IVP SCH (12:00)
[2021-07-26] MEDS: MORPHINE 4 MG SYG IV PRN ×2 (12:18→20:46)
[2021-07-26 15:53] VITALS: BP 154/76
[2021-07-26 20:00] VITALS: BP 161/81
[2021-07-27] VITALS: BP 145/74
[2021-07-27 04:00] VITALS: BP 153/74
[2021-07-27] MEDS: LACTATED RINGERS 1000ML 1,000 ML IV SCH ×2 (05:40→21:27)
[2021-07-27] MEDS: KETOROLAC 30MG VIAL (30MG/ML) IM PRN (05:46)
[2021-07-27 08:00] VITALS: BP 149/79
[2021-07-27] MEDS: PREGABALIN 100 MG CAPSULE PO SCH ×2 (08:49→21:08)
[2021-07-27] MEDS: DILTIAZEM 120MG SR CAP PO SCH (08:49)
[2021-07-27] MEDS: METOPROLOL SUCCINATE 50 MG TAB.SR.24H PO SCH (08:49)
[2021-07-27] MEDS: CEFAZOLIN SODIUM 1 GM VIAL IVP SCH (11:39)
[2021-07-27] MEDS: MORPHINE 4 MG SYG IV PRN ×2 (11:41→22:10)
[2021-07-27 12:00] VITALS: BP 149/79
[2021-07-27 16:12] VITALS: BP 146/73
[2021-07-27 20:00] VITALS: BP 176/84
[2021-07-28 00:22] VITALS: BP 160/76
[2021-07-28 04:00] VITALS: BP 163/78
[2021-07-28] MEDS ORDERED: LIDOCAINE HCL-MPF 1% 2ML VIAL IV PRN (06:30)
[2021-07-28] MEDS ORDERED: POTASSIUM CHLORIDE 10% ELIXIR 20 MEQ/15 ML UDCUP PO PRN (06:30)
[2021-07-28] MEDS ORDERED: KCL 20 MEQ ERTAB PO PRN (06:30)
[2021-07-28] MEDS ORDERED: POTASSIUM CHLORIDE 20MEQ/100ML 100 ML IV PRN (06:30)
[2021-07-28 06:50] LABS: BASOPHILS % (AUTO) 0.4 % (0.0-5.0); EOSINOPHILS % (AUTO) 2.2 % (0.0-8.0); HEMATOCRIT 34.8 % (42-54); LYMPHOCYTES % (AUTO) 13.1 % (21.0-51.0); MEAN CORPUSCULAR HEMOGLOBIN 24.8 pg (27.0-33.0); MEAN CORPUSCULAR HGB CONC 31.9 g/dL (32.0-36.0); MEAN CORPUSCULAR VOLUME 77.7 fL (79-99); MONOCYTES % (AUTO) 8.3 % (3.0-13.0); NEUTROPHILS % (AUTO) 75.9 % (40.0-77.0); PLATELET COUNT (AUTO) 200 K/uL (130-400); RED BLOOD CELL COUNT(AUTO) 4.48 MIL/uL (4.50-6.20); RED CELL DISTRIBUTION WIDTH 17.2 % (11.0-15.5); WHITE BLOOD COUNT (AUTO) 7.3 K/uL (4.8-10.8)
[2021-07-28 06:55] LABS: CREATININE 0.9 mg/dL (0.5-1.5); POTASSIUM 3.7 mmol/L (3.5-5.1)
[2021-07-28 08:00] VITALS: BP 168/76
[2021-07-28] MEDS: PREGABALIN 100 MG CAPSULE PO SCH ×2 (08:58→20:27)
[2021-07-28] MEDS: DILTIAZEM 120MG SR CAP PO SCH (08:58)
[2021-07-28] MEDS: METOPROLOL SUCCINATE 50 MG TAB.SR.24H PO SCH (08:59)
[2021-07-28] MEDS: LACTATED RINGERS 1000ML 1,000 ML IV SCH ×2 (09:50→23:25)
[2021-07-28 11:48] VITALS: BP 173/79
[2021-07-28] MEDS: CEFAZOLIN SODIUM 1 GM VIAL IVP SCH (12:00)
[2021-07-28 16:00] VITALS: BP 160/81
[2021-07-28] MEDS: SIMETHICONE 80 MG TAB.CHEW PO SCH ×2 (18:32→20:27)
[2021-07-28 20:00] VITALS: BP 174/78
[2021-07-28] MEDS: ONDANSETRON 4MG INJ IVP PRN (20:26)
[2021-07-28] MEDS: MORPHINE 4 MG SYG IV PRN (20:27)
[2021-07-28] MEDS: GUAIFENESIN-CODEINE 5 ML SYRUP PO PRN (23:08)
[2021-07-28] MEDS: KETOROLAC 30MG VIAL (30MG/ML) IM PRN (23:12)
[2021-07-29] VITALS (7 sets, daily range): BP systolic 130–173; BP diastolic 68–86
[2021-07-29] MEDS: METOPROLOL SUCCINATE 50 MG TAB.SR.24H PO SCH (08:37)
[2021-07-29] MEDS: SIMETHICONE 80 MG TAB.CHEW PO SCH ×3 (08:37→21:07)
[2021-07-29] MEDS: PREGABALIN 100 MG CAPSULE PO SCH ×2 (08:37→21:07)
[2021-07-29] MEDS: DILTIAZEM 120MG SR CAP PO SCH (08:38)
[2021-07-29] MEDS: GUAIFENESIN-CODEINE 5 ML SYRUP PO PRN (08:40)
[2021-07-29] MEDS: ONDANSETRON 4MG INJ IVP PRN ×2 (10:17→21:08)
[2021-07-29] MEDS: KETOROLAC 30MG VIAL (30MG/ML) IM PRN ×2 (10:18→21:08)
[2021-07-30] MEDS: LACTATED RINGERS 1000ML 1,000 ML IV SCH (01:54)
[2021-07-30 03:38] VITALS: BP 130/62
[2021-07-30] MEDS: PREGABALIN 100 MG CAPSULE PO SCH ×2 (09:01→21:09)
[2021-07-30] MEDS: DILTIAZEM 120MG SR CAP PO SCH (09:02)
[2021-07-30] MEDS: METOPROLOL SUCCINATE 50 MG TAB.SR.24H PO SCH (09:03)
[2021-07-30] MEDS: SIMETHICONE 80 MG TAB.CHEW PO SCH ×4 (09:03→19:26)
[2021-07-30 09:07] VITALS: BP 146/72
[2021-07-30] MEDS: ONDANSETRON 4MG INJ IVP PRN (09:18)
[2021-07-30] MEDS: KETOROLAC 30MG VIAL (30MG/ML) IM PRN ×2 (09:18→19:27)
[2021-07-30 12:52] VITALS: BP 154/71
[2021-07-30 17:20] VITALS: BP 157/76
[2021-07-30] MEDS ORDERED: CALCIUM CARB 500MG CHEW TAB ONE (19:22)
[2021-07-30] MEDS ORDERED: MAG/ALUM/SIMETH 30 ML UDCUP ONE (19:24)
[2021-07-30] MEDS ORDERED: MAG/ALUM/SIMETH 30 ML UDCUP PO PRN (19:30)
[2021-07-30 20:20] VITALS: BP 157/80
[2021-07-31 00:26] VITALS: BP 156/53
[2021-07-31 03:46] VITALS: BP 153/74
[2021-07-31] MEDS: LACTATED RINGERS 1000ML 1,000 ML IV SCH (05:24)
[2021-07-31 08:00] VITALS: BP 149/82
[2021-07-31] MEDS: SIMETHICONE 80 MG TAB.CHEW PO SCH ×2 (08:39→13:48)
[2021-07-31] MEDS: METOPROLOL SUCCINATE 50 MG TAB.SR.24H PO SCH (08:40)
[2021-07-31] MEDS: PREGABALIN 100 MG CAPSULE PO SCH (08:40)
[2021-07-31] MEDS: DILTIAZEM 120MG SR CAP PO SCH (08:40)
[2021-07-31] MEDS: ONDANSETRON 4MG INJ IVP PRN (08:46)
[2021-07-31 12:00] VITALS: BP 171/89
== END 2021-07-31 18:11 | disposition home or self-care (01) | DRG 334 ==
LOC: EDSTATUS 10:00 → DAHIP 07-24 09:37 → 3BH 07-24 15:08
PROVIDERS: ADMIT Surgery; ATTEND Surgery
PROC: 0DBP0ZZ Excision of Rectum, Open Approach (ICD-10-PCS; principal; 2021-07-24 15:05)
DX: Z43.3 Encounter for attention to colostomy (principal); M19.90 Unspecified osteoarthritis, unspecified site; I25.10 Atherosclerotic heart disease of native coronary artery without angina pectoris; I10 Essential (primary) hypertension; Z20.822 Contact with and (suspected) exposure to COVID-19; E11.51 Type 2 diabetes mellitus with diabetic peripheral angiopathy without gangrene; R06.6 Hiccough
CPT/HCPCS: 36415; 45330; 80048; 80053; 85025; 85610; 85730; 87635; 93005; 97039; A4344; G0378; J0330; J0690; J1644; J1885; J2001; J2175; J2250; J2270; J2405; J2543; J2704; J2710; J3010; J3490; J7030; J7120

== ENCOUNTER → 2022-06-21 | Outpatient (CLI) | payer OTHER, MEDICARE ==
[~2022-06-21] MED LIST changes: +METO-391 PO; -TEST200V21 IM
== END | disposition home or self-care (01) ==
LOC: RAH 12:24
PROVIDERS: ATTEND Internal Medicine
DX: I70.0 Atherosclerosis of aorta (principal); K57.92 Diverticulitis of intestine, part unspecified, without perforation or abscess without bleeding; R10.32 Left lower quadrant pain; M47.815 Spondylosis without myelopathy or radiculopathy, thoracolumbar region
CPT/HCPCS: 74176

== ENCOUNTER 2023-06-25 09:37 | Observation (INO) | payer OTHER, MEDICARE ==
[~2023-06-25] VITALS: Ht 182.9 cm; Wt 81.4 kg
[2023-06-25] MEDS ORDERED: PANTOPRAZOLE 40 MG/VIAL IVP ONE (10:00)
[2023-06-25] MEDS ORDERED: 0.9%NACL 1000ML 1,000 ML IV ONE (10:00)
[2023-06-25 10:18] LABS: BASOPHILS # (AUTO) 0.04 K/uL (0.00-0.20); BASOPHILS % (AUTO) 0.7 % (0.0-5.0); EOSINOPHILS % (AUTO) 3.6 % (0.0-8.0); HEMATOCRIT 37.2 % (42-54); IMMATURE GRANULOCYTE ABSOLUTE 0.02 K/uL (0-1); LYMPHOCYTES # (AUTO) 1.3 K/uL (1.0-4.8); LYMPHOCYTES % (AUTO) 23.2 % (21.0-51.0); MEAN CORPUSCULAR HEMOGLOBIN 25.9 pg (27.0-33.0); MEAN CORPUSCULAR HGB CONC 32.5 g/dL (32.0-36.0); MEAN CORPUSCULAR VOLUME 79.5 fL (79-99); MONOCYTES # (AUTO) 0.7 K/uL (0.1-1.0); MONOCYTES % (AUTO) 13.2 % (3.0-13.0); NEUTROPHILS # (AUTO) 3.3 K/uL (1.8-7.7); NEUTROPHILS % (AUTO) 58.9 % (40.0-77.0); PLATELET COUNT (AUTO) 207 K/uL (130-400); RED BLOOD CELL COUNT(AUTO) 4.68 MIL/uL (4.50-6.20); RED CELL DISTRIBUTION WIDTH 15.7 % (11.0-15.5); WHITE BLOOD COUNT (AUTO) 5.6 K/uL (4.8-10.8)
[2023-06-25 10:28] LABS: CREATININE 1.2 mg/dL (0.5-1.5); INR 0.98 (0.85-1.15); POTASSIUM 3.2 mmol/L (3.5-5.1); PROTHROMBIN TIME 11.4 SEC (9.6-11.6)
[2023-06-25 10:29] LABS: PARTIAL THROMBOPLASTIN TIME 30.6 SEC (26.3-35.5)
[2023-06-25 10:32] LABS: ALBUMIN 2.8 g/dL (3.5-5.0); BILIRUBIN,TOTAL 0.6 mg/dL (0.2-1.0); TOTAL PROTEIN, SERUM 5.9 g/dL (6.0-8.3)
[2023-06-25] MEDS ORDERED: IOHEXOL-350 75 ML VIAL IV ONE (11:11)
[2023-06-25] MEDS: 1/2 NS 1000ML 1,000 ML IV SCH ×2 (12:03→21:09)
[2023-06-25] MEDS: PANTOPRAZOLE 40 MG/VIAL IVP SCH (20:25)
[2023-06-25 22:20] VITALS: BP 160/76; PULSE 70; RESP 20
[2023-06-26] VITALS (26 sets, daily range): BP systolic 107–168; BP diastolic 59–98; PULSE 60–93; RESP 15–20; O2SAT 97
[2023-06-26] MEDS: 1/2 NS 1000ML 1,000 ML IV SCH ×2 (04:00→15:34)
[2023-06-26 05:36] LABS: BASOPHILS # (AUTO) 0.05 K/uL (0.00-0.20); BASOPHILS % (AUTO) 0.9 % (0.0-5.0); EOSINOPHILS # (AUTO) 0.25 K/uL (0.00-0.70); EOSINOPHILS % (AUTO) 4.4 % (0.0-8.0); HEMATOCRIT 36.3 % (42-54); IMMATURE GRANULOCYTE ABSOLUTE 0.01 K/uL (0-1); LYMPHOCYTES # (AUTO) 1.5 K/uL (1.0-4.8); LYMPHOCYTES % (AUTO) 25.6 % (21.0-51.0); MEAN CORPUSCULAR HEMOGLOBIN 26.1 pg (27.0-33.0); MEAN CORPUSCULAR HGB CONC 32.2 g/dL (32.0-36.0); MEAN CORPUSCULAR VOLUME 80.8 fL (79-99); MONOCYTES # (AUTO) 0.8 K/uL (0.1-1.0); MONOCYTES % (AUTO) 14.7 % (3.0-13.0); NEUTROPHILS # (AUTO) 3.1 K/uL (1.8-7.7); NEUTROPHILS % (AUTO) 54.2 % (40.0-77.0); PLATELET COUNT (AUTO) 217 K/uL (130-400); RED BLOOD CELL COUNT(AUTO) 4.49 MIL/uL (4.50-6.20); RED CELL DISTRIBUTION WIDTH 15.3 % (11.0-15.5); WHITE BLOOD COUNT (AUTO) 5.7 K/uL (4.8-10.8)
[2023-06-26 05:55] LABS: BILIRUBIN,TOTAL 0.7 mg/dL (0.2-1.0); CREATININE 1.2 mg/dL (0.5-1.5); MAGNESIUM 1.7 mg/dL (1.80-2.40); POTASSIUM 3.3 mmol/L (3.5-5.1); TOTAL PROTEIN, SERUM 6.1 g/dL (6.0-8.3)
[2023-06-26] MEDS ORDERED: ONDANSETRON 4MG INJ IVP PRN (07:00)
[2023-06-26] MEDS ORDERED: MAGNESIUM 2GM PREMIX 50ML 50 ML IV PRN (07:00)
[2023-06-26] MEDS ORDERED: POTASSIUM CHLORIDE 20MEQ/100ML 100 ML IV PRN (07:00)
[2023-06-26] MEDS ORDERED: DILTIAZEM HCL 240 MG PO SCH (09:00)
[2023-06-26] MEDS ORDERED: NON-FORMULARY MEDICATION 1 EACH (Simvastatin 40 MG) PO SCH (09:00)
[2023-06-26] MEDS ORDERED: IRON SUCROSE COMPLEX 200 MG in 0.9% NACL 250ML 250 ML IV SCH (09:00)
[2023-06-26] MEDS: PANTOPRAZOLE 40 MG/VIAL IVP SCH ×2 (09:23→21:26)
[2023-06-26] MEDS: IRON SUCROSE COMPLEX 100 MG/5 ML VIAL IVP SCH (09:24)
[2023-06-26] MEDS ORDERED: PROPOFOL 10 MG/ML 20ML VIAL IV ONE (10:27)
[2023-06-26] MEDS: BACLOFEN 10 MG TABLET PO SCH ×2 (14:14→21:26)
[2023-06-26] MEDS: PREGABALIN 100 MG CAPSULE PO SCH ×2 (14:14→21:26)
[2023-06-26] MEDS: DILTIAZEM 120MG SR CAP PO SCH (14:14)
[2023-06-26] MEDS: METOPROLOL SUCCINATE 50 MG TAB.SR.24H PO SCH (14:14)
[2023-06-26] MEDS: WARFARIN SODIUM 5 MG TAB PO SCH (16:00)
[2023-06-26] MEDS: KCL 20 MEQ ERTAB PO PRN ×2 (17:16→18:54)
[2023-06-26] MEDS ORDERED: POTASSIUM CHLORIDE 10% ELIXIR 20 MEQ/15 ML UDCUP PO PRN (17:30)
[2023-06-26] MEDS ORDERED: SIMVASTATIN 20 MG TABLET PO SCH (21:00)
[2023-06-27] VITALS: BP 141/84; PULSE 73; RESP 20
[2023-06-27 03:40] VITALS: BP 154/95; PULSE 77; RESP 20
[2023-06-27] MEDS: 1/2 NS 1000ML 1,000 ML IV SCH ×2 (04:54→18:14)
[2023-06-27 08:00] VITALS: BP 144/81; PULSE 67; RESP 18; O2SAT 97
[2023-06-27] MEDS: PANTOPRAZOLE 40 MG/VIAL IVP SCH (08:52)
[2023-06-27] MEDS: BACLOFEN 10 MG TABLET PO SCH ×2 (08:53→15:34)
[2023-06-27] MEDS: IRON SUCROSE COMPLEX 100 MG/5 ML VIAL IVP SCH (08:53)
[2023-06-27] MEDS: DILTIAZEM 120MG SR CAP PO SCH (08:53)
[2023-06-27] MEDS: PREGABALIN 100 MG CAPSULE PO SCH (08:53)
[2023-06-27] MEDS: METOPROLOL SUCCINATE 50 MG TAB.SR.24H PO SCH (08:53)
[2023-06-27 11:54] VITALS: BP 151/74; PULSE 62; RESP 18
[2023-06-27] MEDS: WARFARIN SODIUM 5 MG TAB PO SCH (15:34)
[2023-06-27 16:00] VITALS: BP 148/68; PULSE 58; RESP 18
== END 2023-06-27 18:45 | disposition home or self-care (01) ==
LOC: EDH 09:37 → EDHIP 11:46 → 4CH 22:18
PROVIDERS: ADMIT Internal Medicine; ATTEND Internal Medicine
DX: K21.01 Gastro-esophageal reflux disease with esophagitis, with bleeding (principal); R10.9 Unspecified abdominal pain; I10 Essential (primary) hypertension; I25.10 Atherosclerotic heart disease of native coronary artery without angina pectoris; K29.71 Gastritis, unspecified, with bleeding; I48.91 Unspecified atrial fibrillation; M19.90 Unspecified osteoarthritis, unspecified site; Z79.01 Long term (current) use of anticoagulants; Z79.899 Other long term (current) drug therapy; Z98.890 Other specified postprocedural states
CPT/HCPCS: 96376 ×3; 96375 ×2; 99285; 80053 ×2; 85025 ×2; 85610; 85730; 86850; 86900; 86901; 82270; 36415 ×2; 74177; 93005; 96365; 83735; 84484; 88305; 88312; 43239; G0378 ×53; C9113 ×5; Q9967; J3475; J2704; J1756 ×2; A4620; A4215; A7002; A4216; J7030; J3490